=== PATIENT | female | born 1970 | race Caucasian/White ===

== ENCOUNTER 2017-01-21 17:01 | Inpatient (IN) | payer BC, OTHER ==
[~2017-01-21] VITALS: Ht 167.6 cm; Wt 47.6 kg
--- NOTE | 2017-01-21 17:21 | ED Fall/Injury ---
General Stated Complaint: FALL Source: patient Exam Limitations: no limitations History of Present Illness Time seen by provider: 17:19 Initial Comments To ER with reports of a fall while going down her stairs at home. She struck the right side of her head and landed on the right side of her body. No loss of consciousness, recalls all events. No nausea, no dizziness. She reports chronic neck pain. She also reports right shoulder pain. She also reports right hip pain. She takes gabapentin for her fibromyalgia. Occurred: just prior to arrival Severity: moderate Injuries/Pain Location: lower extremity Loss of Consciousness: no loss of consciousness Associated Symptoms (Fall): No Abdominal Pain, No Chest Pain, No Confusion, No Dizziness, Headache, Neck Pain (chronic and unchanged) Allergies and Home Medications Allergies Coded Allergies: No Known Allergies (Verified Allergy, Unknown, 03/29/06) Constitutional: see HPI Eyes: No Symptoms Reported Ears, Nose, Mouth, Throat: no symptoms reported Respiratory: no symptoms reported Cardiovascular: no symptoms reported Genitourinary: no symptoms reported Musculoskeletal: see HPI Skin: no symptoms reported Psychiatric/Neurological: No Symptoms Reported Past Udvhsol-Mszoxc-Ssfgpg Hx Patient Social History Recent Foreign Travel: No Contact w/Someone Who Travel: No Physical Exam Vital Signs Vital Sign - Last 12Hours 01/21/17 17:15 Temp 98.9 Pulse 76 Resp 16 B/P (MAP) 111/69 Pulse Ox 100 O2 Delivery Room Air Capillary Refill : General Appearance: WD/WN, no apparent distress, other (tearful and crying upon arrival) HEENT: PERRL/EOMI, normal ENT inspection, other (there is a small dime-sized abrasion to the right jain where she states she struck her head.) Neck: non-tender, full range of motion Cardiovascular: regular rate, rhythm, no murmur Respiratory: normal breath sounds, no respiratory distress, no accessory muscle use Gastrointestinal: normal bowel sounds, non tender, soft Extremities: normal range of motion, non-tender, other (there is no erythema ecchymosis or deformity to the hip or shoulder where she complains of pain. There is however swelling over the lateral right hip and tendrness to palpation) Neurologic/Psychiatric: alert, normal mood/affect, oriented x 3 Skin: normal color, warm/dry Comments distally she is neurovascularly intact Citlaly Coma Score Best Eye Response: (4) Open Spontaneously Best Verbal Response: (5) Oriented Best Motor Response: (6) Obeys Commands Matthews Total: 15 Progress/Results/Core Measures Results/Orders Lab Results Laboratory Tests Test 01/21/17 17:20 Range/Units White Blood Count 11.5 H 4.3-11.0 10^3/uL Red Blood Count 4.47 4.35-5.85 10^6/uL Hemoglobin 13.8 11.5-16.0 G/DL Hematocrit 41 35-52 % Mean Corpuscular Volume 91 80-99 FL Mean Corpuscular Hemoglobin 31 25-34 PG Mean Corpuscular Hemoglobin Concent 34 32-36 G/DL Red Cell Distribution Width 12.9 10.0-14.5 % Platelet Count 234 130-400 10^3/uL Mean Platelet Volume 10.7 H 7.4-10.4 FL Neutrophils (%) (Auto) 65 42-75 % Lymphocytes (%) (Auto) 26 12-44 % Monocytes (%) (Auto) 6 0-12 % Eosinophils (%) (Auto) 3 0-10 % Basophils (%) (Auto) 0 0-10 % Neutrophils # (Auto) 7.4 1.8-7.8 X 10^3 Lymphocytes # (Auto) 3.0 1.0-4.0 X 10^3 Monocytes # (Auto) 0.7 0.0-1.0 X 10^3 Eosinophils # (Auto) 0.3 0.0-0.3 10^3/uL Basophils # (Auto) 0.0 0.0-0.1 10^3/uL My Orders Orders - NADIYA MITCHELL APRN Ct Head/Cervical Spine Wo (01/21/17 17:18) Chest 1 View, Ap/Pa Only (01/21/17 17:18) Shoulder, Right, 3 Views (01/21/17 17:18) Cbc With Automated Diff (01/21/17 17:18) Saline Lock/Iv-Start (01/21/17 17:18) Hip, Right, 2 Views (01/21/17 17:18) Pelvis (01/21/17 17:18) Femur, Right, 2 Views (01/21/17 17:18) Fentanyl Injection (Sublimaze Injection (01/21/17 17:30) Fentanyl Injection (Sublimaze Injection (01/21/17 17:30) Ct Extremity Lower Right Wo (01/21/17 19:04) Morphine Injection (Morphine Injection (01/21/17 19:15) Partial Thromboplastin Time (01/21/17 19:49) Protime With Inr (01/21/17 19:49) Comprehensive Metabolic Panel (01/21/17 19:49) Medications Given in ED Current Medications Medications Dose Ordered Sig/Kyrie Route Start Time Stop Time Status Last Admin Dose Admin Fentanyl Citrate 75 mcg ONCE ONCE IVP 01/21/17 17:30 01/21/17 17:31 DC 01/21/17 17:30 75 MCG Morphine Sulfate 5 mg ONCE ONCE IVP 01/21/17 19:15 01/21/17 19:16 DC 01/21/17 19:10 5 MG Vital Signs/I&O Vital Sign - Last 12Hours 01/21/17 17:15 Temp 98.9 Pulse 76 Resp 16 B/P (MAP) 111/69 Pulse Ox 100 O2 Delivery Room Air Diagnostic Imaging Diagonstic Imaging: Xray, CT Comments NAME: HARISH KEMP [facility] REC#: [id number] PT STATUS: REG ER : 1970 PHYSICIAN: NADIYA MITCHELL EXERCISE RIDER ADMIT DATE: 01/21/17/ER Draft Date of Exam:01/21/17 CT HEAD/CERVICAL SPINE WO EXAMINATION: CT brain and CT cervical spine dated 01/21/2017. TECHNIQUE: Multiple contiguous axial images were obtained through the brain and cervical spine without the use of intravenous contrast. Sagittal and coronal reformations through the cervical spine were then performed. INDICATION: Fell down the stairs. Hit head. Pain in the shoulder and right hip. FINDINGS: BRAIN: No hemorrhage or infarct is seen with no mass, mass effect, or midline shift. There is no hydrocephalus. No acute osseous abnormality is seen. CERVICAL SPINE: The cervical spine demonstrates postoperative change with anterior fusion at C5-C6. The orthopedic hardware is unremarkable. Alignment of the spine is maintained. No acute fracture is appreciated. Lung apices demonstrate biapical scarring. Prevertebral soft tissues demonstrate no acute disease IMPRESSION: 1. Postoperative change in the neck with no acute abnormality appreciated within the cervical spine. 2. No acute process within the intracranial structures. Dictated on workstation # [id number] Dict: 01/21/17 1829 Trans: 01/21/17 184 [id number] Interpreted by: ELDON ALVAREZ MD Electronically signed by: NAME: HARISH KEMP [facility] REC#: [id number] PT STATUS: REG ER : 1970 PHYSICIAN: NADIYA MITCHELL APRN ADMIT DATE: 01/21/17/ER Draft Date of Exam:01/21/17 HIP, RIGHT, 2 VIEWS INDICATION: Fell down stairs, hip pain EXAMINATION: Right hip dated 01/21/17 FINDINGS: Two views of the hip demonstrate a suspected fracture through the femoral neck which was discussed with Dr. Mitchell. No dislocations are seen. Remaining visualized osseous structures intact. IMPRESSION: 1. Suspected not significantly displaced fracture of the right femoral neck. Dictated on workstation # [id number] Dict: 01/21/17 190 Trans: 01/21/17 191 [facility] [id number] Interpreted by: ELDON ALVAREZ MD Electronically signed by: NAME: HARISH KEMP [facility] REC#: [id number] PT STATUS: REG ER : 1970 PHYSICIAN: NADIYA MITCHELL APRN ADMIT DATE: 01/21/17/ER Draft Date of Exam:01/21/17 CT EXTREMITY LOWER RIGHT WO INDICATION: Fall, right hip pain. EXAMINATION: Right lower extremity CT, 01/21/2017. FINDINGS: There is a fracture of the right femoral neck. This lies at the junction of the femoral head and neck. The fracture site is slightly comminuted in appearance. Mild rotation of the femoral head in relation to the femoral neck is noted but there is no dislocation. No intratrochanteric extension is appreciated. The remaining visualized osseous structures appear to be intact. The visualized intrapelvic structures demonstrate no evidence for acute disease. IMPRESSION: Acute not significantly displaced right femoral neck fracture. Dictated on workstation # [id number] Dict: 01/21/17 193 Trans: 01/21/171954 [facility] 1625-1999 Interpreted by: ELDON ALVAREZ MD Electronically signed by: Departure Communication Time/Spoke to Admitting Phy: 19:[address] Hooker who is on-call for orthopedics. He would like to make the patient nothing by mouth after midnight and plan for hemiarthroplasty of the right hip tomorrow to follow his other cases. Consult medicine for clearance Time/Spoke to Consulting Physi: 19:43 Communication/Consulting Consult to Dr. Sanchez Impression Impression: Primary Impression: Closed right hip fracture Disposition: ADMITTED INPATIENT Condition: Stable Departure-Patient Inst. Decision time for Depature: 19:43 Referrals: CATA VERAS MD (PCP) Primary Care Physician Copy Copies To 1: CATA VERAS MD, PETER J APRN Jan 21, 2017 17:21
[2017-01-21] MEDS ORDERED: fentaNYL INJECTION 100 MCG/2 ML AMP IVP ONE ×2 (17:30)
[2017-01-21 17:43] LABS: BASOPHILS % (AUTO) 0 % (0-10); EOSINOPHILS # (AUTO) 0.3 10^3/uL (0.0-0.3); EOSINOPHILS % (AUTO) 3 % (0-10); LYMPHOCYTES % (AUTO) 26 % (12-44); MEAN CORPUSCULAR HEMOGLOBIN 31 PG (25-34); MEAN CORPUSCULAR HGB CONC 34 G/DL (32-36); MEAN CORPUSCULAR VOLUME 91 FL (80-99); MEAN PLATELET VOLUME 10.7 FL (7.4-10.4); MONOCYTES # (AUTO) 0.7 X 10^3 (0.0-1.0); MONOCYTES % (AUTO) 6 % (0-12); NEUTROPHILS # (AUTO) 7.4 X 10^3 (1.8-7.8); NEUTROPHILS % (AUTO) 65 % (42-75); PLATELET COUNT 234 10^3/uL (130-400); RED BLOOD COUNT 4.47 10^6/uL (4.35-5.85); RED CELL DISTRIBUTION WIDTH 12.9 % (10.0-14.5); WHITE BLOOD COUNT 11.5 10^3/uL (4.3-11.0)
--- NOTE | 2017-01-21 18:42 | Diagnostic Imaging Report ---
EXAMINATION: CT brain and CT cervical spine dated 01/21/2017. TECHNIQUE: Multiple contiguous axial images were obtained through the brain and cervical spine without the use of intravenous contrast. Sagittal and coronal reformations through the cervical spine were then performed. INDICATION: Fell down the stairs. Hit head. Pain in the shoulder and right hip. FINDINGS: BRAIN: No hemorrhage or infarct is seen with no mass, mass effect, or midline shift. There is no hydrocephalus. No acute osseous abnormality is seen. CERVICAL SPINE: The cervical spine demonstrates postoperative change with anterior fusion at C5-C6. The orthopedic hardware is unremarkable. Alignment of the spine is maintained. No acute fracture is appreciated. Lung apices demonstrate biapical scarring. Prevertebral soft tissues demonstrate no acute disease IMPRESSION: 1. Postoperative change in the neck with no acute abnormality appreciated within the cervical spine. 2. No acute process within the intracranial structures. Dictated by: Dictated on workstation # [id number]
--- NOTE | 2017-01-21 19:09 | Diagnostic Imaging Report ---
INDICATION: Fall EXAMINATION: Chest dated 01/21/2017 FINDINGS: The cardiomediastinal silhouette is unremarkable. The pulmonary vasculature is within normal limits. The lungs are hyperinflated. IMPRESSION: No evidence of an acute cardiopulmonary process. Dictated by: Dictated on workstation # [id number]
--- NOTE | 2017-01-21 19:11 | Diagnostic Imaging Report ---
INDICATION: Fell down stairs, hip pain EXAMINATION: Right hip dated 01/21/17 FINDINGS: Two views of the hip demonstrate a suspected fracture through the femoral neck which was discussed with Dr. Mitchell. No dislocations are seen. Remaining visualized osseous structures intact. IMPRESSION: 1. Suspected not significantly displaced fracture of the right femoral neck. Dictated by: Dictated on workstation # [id number]
--- NOTE | 2017-01-21 19:13 | Diagnostic Imaging Report ---
INDICATION: Fall EXAMINATION: Pelvis 01/21/17 FINDINGS: There is a fracture of the right femoral neck. Left hip is intact. IMPRESSION: 1. Right femoral neck fracture Dictated by: Dictated on workstation # [id number]
--- NOTE | 2017-01-21 19:13 | Diagnostic Imaging Report ---
INDICATION: Fall, right hip pain. EXAMINATION: Right shoulder, 01/21/2017. FINDINGS: Three views of the shoulder demonstrate no evidence for fracture or dislocation. Joint spaces are preserved and the right lung is clear. IMPRESSION: No acute osseous abnormality. Dictated by: Dictated on workstation # [id number]
[2017-01-21] MEDS ORDERED: morphine INJ 10 MG/ML 1ML (SYR OR VIAL) IVP ONE ×2 (19:15→20:30)
--- NOTE | 2017-01-21 19:15 | Diagnostic Imaging Report ---
INDICATION: Right hip pain EXAMINATION: Right hip dated 01/21/2017 FINDINGS: There is a suspected fracture through the right femoral neck with mild foreshortening at the fracture site but no dislocation appreciated. The more distal femur is intact. IMPRESSION: 1. Suspected right femoral neck fracture. This was discussed with Dr. Mitchell by Dr. Davison at the time of the dictation. CT may provide further characterization. Dictated by: Dictated on workstation # [id number]
--- NOTE | 2017-01-21 19:55 | Diagnostic Imaging Report ---
INDICATION: Fall, right hip pain. EXAMINATION: Right lower extremity CT, 01/21/2017. FINDINGS: There is a fracture of the right femoral neck. This lies at the junction of the femoral head and neck. The fracture site is slightly comminuted in appearance. Mild rotation of the femoral head in relation to the femoral neck is noted but there is no dislocation. No intratrochanteric extension is appreciated. The remaining visualized osseous structures appear to be intact. The visualized intrapelvic structures demonstrate no evidence for acute disease. IMPRESSION: Acute not significantly displaced right femoral neck fracture. Dictated by: Dictated on workstation # [id number]
[2017-01-21 20:37] LABS: INR 1.1 (0.8-1.4); PROTHROMBIN TIME PATIENT 13.6 SEC (12.2-14.7)
[2017-01-21 20:45] LABS: ALANINE AMINOTRANSFERASE 22 U/L (0-55); ALBUMIN 4.3 GM/DL (3.2-4.5); ANION GAP 12 MMOL/L (5-14); ASPARTATE AMINO TRANSFERASE 27 U/L (5-34); BILIRUBIN,TOTAL 0.6 MG/DL (0.1-1.0); BLOOD UREA NITROGEN 7 MG/DL (7-18); BUN/CREATININE RATIO 8 (0-20); CARBON DIOXIDE 23 MMOL/L (21-32); CHLORIDE 103 MMOL/L (98-107); GFR ESTIMATED > 60; GLUCOSE 154 MG/DL (70-105); HEMOLYSIS 13 (-100-29); ICTERUS 0.6 (-100-1.9); LIPEMIA 2 (-100-49); POTASSIUM 3.5 MMOL/L (3.6-5.0); SODIUM 138 MMOL/L (135-145); TOTAL PROTEIN 6.6 GM/DL (6.4-8.2)
[2017-01-21 20:53] LABS: BILIRUBIN,URINE NEGATIVE (NEGATIVE); KETONES,URINE 2+ (NEGATIVE); LEUKOCYTE ESTERASE ,URINE 1+ (NEGATIVE); NITRITE,URINE NEGATIVE (NEGATIVE); PH,URINE 7 (5-9); PROTEIN,URINE NEGATIVE (NEGATIVE); UROBILINOGEN,URINE NORMAL (NORMAL)
[2017-01-21 21:05] LABS: RENAL EPITHELIAL CELLS,URINE RARE /HPF; WBC,URINE 0-2 /HPF
[2017-01-21] MEDS ORDERED: NS IV 1000 ML 1,000 ML ONE (21:17)
[2017-01-21] MEDS ORDERED: morphine PCA 30 MG/30 ML VIAL IV ONE (21:17)
[2017-01-21 21:35] VITALS: BP 105/66
[2017-01-21] MEDS ORDERED: NS IV 1000 ML 1,000 ML IV SCH (22:25)
[2017-01-21] MEDS ORDERED: diphenhydrAMINE 50 MG/ML INJ (BENADRYL) IV PRN (22:30)
[2017-01-21] MEDS ORDERED: ONDANSETRON 4 MG/2 ML (SDV) Z0FRAN IV PRN (22:30)
[2017-01-21] MEDS ORDERED: NALOXONE 0.4 MG/ML 1 ML (NARCAN) VIAL IV PRN (22:30)
[2017-01-21] MEDS ORDERED: METOCLOPRAMIDE INJ 10 MG/2 ML (REGLAN) IV PRN (22:30)
[2017-01-22] VITALS (7 sets, daily range): BP systolic 86–104; BP diastolic 51–63
[2017-01-22] MEDS ORDERED: TRAZ100T92 PO (00:09)
[2017-01-22] MEDS ORDERED: GABA300C PO (00:09)
[2017-01-22] MEDS ORDERED: LEVO112T2 PO (00:09)
[2017-01-22] MEDS: NS IV 1000 ML 1,000 ML IV SCH ×3 (05:44→17:47)
[2017-01-22] MEDS: morphine PCA 30 MG/30 ML VIAL IV PRN (07:08)
--- NOTE | 2017-01-22 07:52 | History & Physicial ---
History of Present Illness History of Present Illness Reason for visit/HPI 46 yr old FM fell yesterday going down flight of stairs. she fell from height of two feet onto ground directly onto her R hip. She has R shoulder and R hip pain and is unable to WB. She has a minimally displaced R femoral neck fracture. She is agreeable to operative stabilization and understands the risk of future hemiarthroplasty. She is on no blood thinners. Date of Admission Jan 21, 2017 at 19:47 Time Seen by Provider: 07:50 I consulted on this patient on 01/22/17 07:49 Attending Physician Maury Hooker DO Admitting Physician Minerva West MD Consult Allergies and Home Medications Allergies Coded Allergies: NKANo Known Allergies (Verified Allergy, Unknown, 03/29/06) Home Medications Gabapentin 300 Mg Capsule, 300 MG PO BID, (Reported) Levothyroxine Sodium 112 Mcg Tablet, 112 MCG PO DAILY, (Reported) Trazodone HCl 100 Mg Tablet, 100 MG PO HS, (Reported) Past Vdgpelu-Wpodse-Wxrhaj Hx Patient Social History Alcohol Use: Denies Use Recreational Drug Use: No Smoking Status: Current Everyday Smoker Type Used: Cigarettes 2nd Hand Smoke Exposure: No Physical Abuse Screen: No Sexual Abuse: No Recent Foreign Travel: No Contact w/other who traveled: No Recent Hopitalizations: No Recent Infectious Disease Expo: No Seasonal Allergies Seasonal Allergies: No Surgeries Surgeries: Abdominal, Adenoidectomy, Gallbladder, Hysterectomy, Orthopedic, Tonsillectomy Gastrointestinal Gastrointestinal Disorders: Hiatal Hernia Musculoskeletal Musculoskeletal Disorders: Degenerate Disk Disease, Fibromyalgia Endocrine Endocrine Disorders: Hypothyroidsim Psychosocial Behavioral Health Disorders: Anxiety, Depression Blood Transfusions Adverse Reaction to a Blood Tr: No Constitutional: no symptoms reported Physical Exam Vital Signs Vital Sign - Last 12Hours 01/21/17 17:15 Temp 98.9 Pulse 76 Resp 16 B/P (MAP) 111/69 Pulse Ox 100 O2 Delivery Room Air Capillary Refill : Less Than 3 SecondsLess Than 3 Seconds General Appearance: No Apparent Distress Extremity: Other (Pain with RLE log roll, 5/5 dorsiflexion, SILT all dermatomes , 2/4 DP, PT) Assessment/Plan Assessment and Plan ASSESSMENT: R femoral neck fracture PLAN: R hip CRPP postoperative DVT prophylaxis medicine consulted for clearance Problems: Clinical Quality Measures DVT/VTE Risk/Contraindication: Risk Factor Score Per Nursin RFS Level Per Nursing on Admit: 4+=Very High MAURY HOOKER DO Jan 22, 2017 07:52
[2017-01-22] MEDS ORDERED: GABA-488 PO (08:52)
[2017-01-22] MEDS ORDERED: FLUO40CA PO (08:52)
[2017-01-22] MEDS ORDERED: CYCL10TA9 PO (08:52)
[2017-01-22] MEDS ORDERED: FAMOTIDINE 20MG/2ML IV (PEPCID) IV NR (09:43)
[2017-01-22] MEDS: SENNA W/DOCUSATE (SENOKOT S) TABLET PO SCH (09:45)
[2017-01-22] MEDS ORDERED: BUPIVACAINE 0.5% 30 ML (SENSORCAINE) VIAL ONE (10:54)
[2017-01-22] MEDS: LACTATED RINGERS 1,000 ML IV PRN ×2 (11:15→12:43)
[2017-01-22] MEDS ORDERED: ceFAZolin 1,000 MG (ANCEF) VIAL ONE (11:15)
[2017-01-22] MEDS ORDERED: fentaNYL INJECTION 100 MCG/2 ML AMP ONE (11:32)
[2017-01-22] MEDS ORDERED: MIDAZOLAM 10 MG/2 ML (VERSED) VIAL ONE (11:32)
--- NOTE | 2017-01-22 11:32 | Occ Therapy Progress Note ---
Therapy Progress Note Order received for OT eval and treat. Chart review completed and spoke with RN regarding plan of care. Pt admitted with right hip fracture and plan is for pt to go to OR today for surgical intervention. Will hold therapy at this time and follow up on 01/23/17 to attempt OT evaluation. THOMAS ODRAN OT Jan 22, 2017 11:32
[2017-01-22] MEDS ORDERED: morphine PF (DURAMORPH) 10 MG/10 ML AMP ONE (11:36)
[2017-01-22] MEDS ORDERED: proPOfol 200 MG/20 ML (DIPRIVAN) VIAL IV ONE (11:36)
[2017-01-22] MEDS ORDERED: LACTATED RINGERS 2,000 ML IV ONE (12:32)
[2017-01-22] MEDS ORDERED: morphine INJ 10 MG/ML 1ML (SYR OR VIAL) ONE (13:00)
--- NOTE | 2017-01-22 13:48 | Diagnostic Imaging Report ---
INDICATION: Right hip fracture IMPRESSION: 54.5 seconds of fluoroscopy was used by Dr. Hooker during right hip pinning. 2 digital images show 3 screws positioned within the femoral neck. Dictated by: Dictated on workstation # [id number]
[2017-01-22] MEDS: oxyCODONE/APAP 5/325MG (PERCOCET 5) TABLET PO PRN (14:49)
[2017-01-23 00:15] VITALS: BP 110/65
[2017-01-23] MEDS: NS IV 1000 ML 1,000 ML IV SCH ×2 (01:41→09:44)
--- NOTE | 2017-01-23 03:17 | OPERATIVE REPORT ---
DATE OF SERVICE: 01/22/2017 SURGEON: Maury Hooker DO TELLER HEAD: RITIKA Delgado This is a medically necessary procedure. Assistance is necessary for retraction of vital neurovascular structures. Without an health assistant, procedure would not be possible. PREOPERATIVE DIAGNOSIS: Minimally displaced right femoral neck fracture. POSTOPERATIVE DIAGNOSIS: Minimally displaced right femoral neck fracture. PROCEDURE PERFORMED: 1. Closed reduction. 2. Percutaneous pinning of right femoral neck. COMPLICATIONS: None. SPECIMENS: None. ANESTHESIA: General endotracheal tube anesthesia with local anesthetic. DRAIN PLACED: None. SPECIMEN SENT: None. HISTORY OF PRESENT ILLNESS: The patient is a very pleasant 46-year-old female who yesterday slipped going down the stairs. She fell down 2 stairs directly on her right hip. She experienced right hip pain and inability to bear weight. She presented to the ER where fracture of her femoral neck on the right side was identified. Orthopedics was consulted. She was made nonweightbearing and made n.p.o. for OR today. Due to the patient's young age and relative good alignment of the fracture, I did opt to perform a percutaneous pinning to preserve her [place] bone. She understands that the risk of this is fracture displacement and subsequent need for hemiarthroplasty and another surgery. OPERATION: The patient was identified by name on wrist band in the preoperative holding area. Her operative site was signed. Consent was signed. SCDs were placed. No neuro monitoring was used. Antibiotics were started. She was taken to the operating room theater, placed under general endotracheal tube anesthesia and placed in the supine position on the fracture table. Her unaffected left lower extremity was abducted and externally rotated. Her affected right lower extremity was brought out to 180 degrees and internally rotated approximately 15 degrees and adducted. She was then prepped and draped in the usual sterile fashion. Formal timeout was conducted. I then made a small 1.5-inch incision over her right greater trochanter. I used a knife to cut her fascia and I gained access to the lateral cortex of her proximal femur. I then placed under power a wire to parallel the inferior aspect of the femoral neck and I brought that wire just shy of subchondral bone. I reviewed this process superiorly for an anterosuperior and anteroposterior pin. Once I verified the positioning of these on AP and lateral x-ray, I measured the length of my intended screws. I broke the lateral cortices and I obtained those screws and placed one of the screws in breach lateral cortex, therefore, I removed it, placed a washer in order and it allowed to lag the 2 fracture fragments together. Once finished, I removed the guidewires and obtained an AP and lateral x-ray and screws were in good position and the fracture alignment was acceptable. At this point, I irrigated the wound and I closed it in my usual layered fashion utilizing 0 Vicryl followed by 2-0 Vicryl, followed by pa for skin. I applied dressing and took the patient in a supine position to PACU where she awoke without incident. She tolerated this procedure very well. Plan at this time is to keep the patient nonweightbearing on her affected right lower extremity. We will have her on Lovenox and also for DVT prophylaxis, we will keep her on aspirin. We will have her on physical therapy for crutch training. Job ID: [id number] DocumentID: [id number] Dictated Date: 01/22/2017 13:01:50 Sheet Metal Apprentice Date: 01/23/2017 00:03:30 Dictated By: MAURY HOOKER DO
[2017-01-23 04:10] VITALS: BP 112/72
[2017-01-23 05:49] LABS: MEAN PLATELET VOLUME 11.2 FL (7.4-10.4); RED BLOOD COUNT 3.76 10^6/uL (4.35-5.85); RED CELL DISTRIBUTION WIDTH 13.2 % (10.0-14.5); WHITE BLOOD COUNT 8.5 10^3/uL (4.3-11.0)
[2017-01-23 06:12] LABS: ALANINE AMINOTRANSFERASE 64 U/L (0-55); ANION GAP 9 MMOL/L (5-14); ASPARTATE AMINO TRANSFERASE 52 U/L (5-34); BILIRUBIN,TOTAL 0.6 MG/DL (0.1-1.0); BLOOD UREA NITROGEN 5 MG/DL (7-18); BUN/CREATININE RATIO 7 (0-20); CALCIUM 8.3 MG/DL (8.5-10.1); CARBON DIOXIDE 22 MMOL/L (21-32); CHLORIDE 110 MMOL/L (98-107); CREATININE SERUM 0.74 MG/DL (0.60-1.30); GFR ESTIMATED > 60; GLUCOSE 73 MG/DL (70-105); HEMOLYSIS 7 (-100-29); ICTERUS 0.5 (-100-1.9); LIPEMIA -2 (-100-49); POTASSIUM 3.9 MMOL/L (3.6-5.0); SODIUM 141 MMOL/L (135-145); TOTAL PROTEIN 5.1 GM/DL (6.4-8.2)
[2017-01-23] MEDS: oxyCODONE/APAP 5/325MG (PERCOCET 5) TABLET PO PRN ×4 (07:51→20:28)
[2017-01-23] MEDS: SENNA W/DOCUSATE (SENOKOT S) TABLET PO SCH (07:52)
[2017-01-23] MEDS: ENOXAPARIN 40 MG/0.4 ML (LOVENOX) SYR SC SCH (07:52)
[2017-01-23] MEDS: morphine PCA 30 MG/30 ML VIAL IV PRN (08:16)
[2017-01-23 08:56] VITALS: BP 112/72
--- NOTE | 2017-01-23 09:33 | Physical Therapy Evaluation ---
PT Evaluation-General Medical Diagnosis Admission Date Jan 21, 2017 at 19:47 Medical Diagnosis: right femoral neck fracture Onset Date: Jan 21, 2017 Therapy Diagnosis Therapy Diagnosis: debility Height/Weight Height (Feet): 5 Height (Inches): 6.00 Weight (Pounds): 105 Weight (Ounces): 0.0 Precautions Precautions/Isolations: Fall Prevention, Standard Precautions Weight Bear Status Weight Bearing Restriction: Non Weight Bearing Location Restriction: R LE Referral Physician: Morro Reason for Referral: Evaluation/Treatment Medical History Pertinent Medical History: DM Additional Medical History fibromyalgia Current History s/p fall going down steps, hit head and right hip s/p pinning right hip Reviewed History: Yes Social History Home: Single Level Current Living Status: Spouse Entry Into Home: Stairs Without Railing PT Steps Into Home: 2 Prior/Core FIM Prior Level of Function Functional [place] Measure 0=Not Assessed/NA 4=Minimal Assistance 1=Total Assistance 5=Supervision or Setup 2=Maximal Assistance 6=Modified [place] 3=Moderate Assistance 7=Complete [place] Bed Mobility: 7 Transfers (B,C,W/C) (FIM): 7 Gait: 7 Locomotion: 7 PT Evaluation-Current Subjective Patient rates right hip pain 10/10 with oral pain meds and DRAPERY OPERATOR use. Pain Numeric Pain Scale: 10-Worst Possible Pain Location: Right Location Body Site: Hip Pain Description: Acute Objective Patient Orientation: Normal For Age Problem Solving: Good Attachments: IV ROM/Strength ROM Lower Extremities left LE WFL right LE limited due to pain Strenght Lower Extremities left LE 4/5 grossly all planes right LE NT Integumentary/Posture Integumentary refer to nursing notes Bowel Incontinence: No Bladder Incontinence: No Posture WNL Neuromuscular (Tone, Coordination, Reflexes) grossly intact Sensory Vision: Wears Glasses Hearing: Functional Sensation Right Lower Extremit: Intact Sensation Left Lower Extremity: Intact Transfers Functional [place] Measure 0=Not Assessed/NA 4=Minimal Assistance 1=Total Assistance 5=Supervision or Setup 2=Maximal Assistance 6=Modified [place] 3=Moderate Assistance 7=Complete [place] Transfers (B, C, W/C) (FIM): 6 Scootin Rollin Supine to/from Sit: 6 Sit to/from Stand: 6 Gait Mode of Locomotion: Walk Anticipated Mode of Locomotion: Walk Gait (FIM): 1 Distance (FIM): 1=up to 49 ft Distance: 10' Gait Level of Assist: 6 Gait Assistive Device: FWW Comments/Gait Description NWB right LE Balance Sitting Static: Normal Sitting Dynamic: Normal Standing Static: Normal Standing Dynamic: Normal Assessment/Needs 46 y.o. female, will benefit from short term skilled PT to address functional strength and mobility to ensure safe return to home with spouse at maximum LOF. Rehab Potential: Good PT Short Term Goals Short Term Goals Time Frame: Jan 26, 2017 Transfers (B,C,W/C) (FIM): 6 Gait (FIM): 1 Distance (FIM): 1=up to 49 ft Gait Level of Assist: 6 Gait Assistive Device: FWW PT Plan Problem List Problem List: Activity Tolerance, Functional Strength Treatment/Plan Treatment Plan: Continue Plan of Care Treatment Plan: Education, Functional Activity Cherri, Functional Strength, Gait , Therapeutic Exercise Treatment Duration: Jan 26, 2017 # of days/week 5 Visits Per Week: 5 Pt/Family Agrees w/Plan: Yes Safety Risks/Education Patient Education: Gait Training, Transfer Techniques Teaching Recipient: Patient, Significant Other Teaching Methods: Demonstration, Discussion Response to Teaching: Verbalize Understanding, Return Demonstration Discharge Recommendations Therapy D/C Recommendations: Home w/ Family Support Equpiment Recommendations-D/C: Front Wheeled Walker Time/GCodes Time In: 805 Time Out: 820 Total Billed Treatment Time: 15 Total Billed Treatment 1 visit EVLowC 15 min G Codes Necessary: EUGENE Davison PT Jan 23, 2017 09:33
--- NOTE | 2017-01-23 09:50 | Occupational Therapy Eval ---
OT Evaluation-General/PLF Medical Diagnosis Admission Date Jan 21, 2017 at 19:47 Medical Diagnosis: right femoral neck fracture Onset Date: Jan 21, 2017 Therapy Diagnosis Therapy Diagnosis: Decreased ADL skills Height/Weight Height (Feet): 5 Height (Inches): 6.00 Weight (Pounds): 105 Weight (Ounces): 0.0 Precautions Precautions/Isolations: Fall Prevention, Standard Precautions Safety Interventions: None Weight Bear Status Weight Bearing Restriction: Non Weight Bearing Location Restriction: R LE Pt. has pinning in right hip. Referral Physician: Mor[place] Referral Reason: Activity Tolerance, Self Care, Evaluation/Treatment, Strengthening/ROM Medical History Pertinent Medical History: DM Additional Medical History abdominal surgery, DDD, anxiety, depression Current History Pt. fell in garage. Reviewed History: Yes Social History Home: Single Level Current Living Status: Spouse Entry Into Home: Stairs With Railing, Stairs Without Railing Steps Into Home: 2 ADL-Prior Level of Function ADL PLOF Comments Pt. 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 Did not state what she did. Was independent with all other self care activities. Spouse works as well. DME/Equipment: Bath Chair, Bedside Commode, Tub/Shower DME/Equipment Comments Pt. and spouse state that she has access to the pieces of adaptive equipment. Drive Self: Yes OT Current Status Subjective Pt. states that her pain is well controlled at this moment. Pt. does note that her right UE is sore. Does not state a pain level. Appearance Pt. up in chair. States, "I'm groggy right now." Spouse in room. Mental Status/Objective Patient Orientation: Person, Place Attachments: IV Current Glasses/Contacts: Yes Upper Extremity ROM Left- WFL Right- Pt. able to flex shoulder to right over 90 degrees. Indicates pain in area of bicep belly. No pain noted in shoulder girdle. No pain noted in elbow region. Pt. is able to externally and internally rotate shoulder, but states that she has soreness in same area with doing this. Upper Extremity Coordination intact Upper Extremity Strength NT due to pain in right UE. Pt. states that she fell on right side when she fell in her garage. States that she had x-rays, that did not show dislocation or fx. States that she is to have an MRI, but is afraid due to hip pain and hard surface in which she has to lay. No bruising noted except in thenar eminence of right palm. No swelling noted. ADL-Treatment Functional [place] Measure 0=Not Assessed/NA 4=Minimal Assistance 1=Total Assistance 5=Supervision or Setup 2=Maximal Assistance 6=Modified [place] 3=Moderate Assistance 7=Complete IndependenceIRFPAI Quality Coding Scale 6 Independent with activity with or without an assistive device 5 Patient requires set up or clean up by helper. Patient completes activity by themselves 4 Supervision or touching assist (CGA). [place] provide cues , steadying assist 3 The helper provides less than half the effort to complete the activity 2 The helper provides more than half the effort to complete the activity 1 Dependent. The helper does all the effort to complete an activity 7 Patient refused to complete or attempt activity 9 The patient did not perform the activity before the current illness or injury 88 Not attempted due to Medical conditions or safety concerns Toileting (FIM): 5 (Pt. states that she has already been to bathroom this morning with spouse assist, and was able to toilet on her own.) Pt. declines out of chair activity. However, is able to reach feet from chair surface. Pt. and spouse are fully educated regarding adaptive equipment, and possible OT needs. However, pt. states that she does not feel that she will have a problem. States that between her spouse, sister, and daughter, that she will have assist and will not have issues with mobility or ADLs. Pt. and spouse are educated on tub/transfer bench as well, as they have access to a shower chair, walker, and BSC. Pt. is fully aware of NWB precautions. Both pt. and spouse verbalize understanding. This OT offers to assist pt. with shower task. Pt. declines at this time and states, 'I'm too groggy." Pt. states that her spouse can assist later if she wants one. Pt. does not feel that she has OT needs at this time. Pt. and spouse educated to have OT come back, if they have questions when she does start doing these tasks. Both verbalize understanding. Education OT Patient Education: Correct positioning, Modified ADL techniques, Purpose of tx/functional activities, Reviewed precautions, Rehab process Teaching Recipient: Patient, Family Teaching Methods: Demonstration, Discussion Response to Teaching: Verbalize Understanding, Return Demonstration OT Short Term Goals Short Term Goals Transfers (B,C,W/C) (FIM): 6 1=Demonstrate adherence to instructed precautions during ADL tasks. 2=Patient will verbalize/demonstrate understanding of assistive devices/ modifications for ADL. 3=Patient will improve strength/tolerance for activity to enable patient to perform ADL's. OT Wet Process Head Miller Goals Wet Process Head Miller Goals Time Frame: Jan 23, 2017 Pt. and spouse will verbalize all needs for home, and OT goals. Both have done so, and do not feel that OT is warranted at this time. Would be happy to come back and talk with this pt. and family if needed, or if they change their minds later. Additional Goals: 2-Verbalize Understanding 1=Demonstrate adherence to instructed precautions during ADL tasks. 2=Patient will verbalize/demonstrate understanding of assistive devices/ modifications for ADL. 3=Patient will improve strength/tolerance for activity to enable patient to perform ADL's. OT Education/Plan Problem List/Assessment Assessment: Decreased Activ Tolerance, Impaired I ADL's, Impaired Self-Care Skills Discharge Recommendations Plan/Recommendations: Discontinue OT Therapy D/C Recommendations: Home w/ Family Support Equpiment Recommendations-D/C: Extended Bath Bench Comment Pt. may possibly need hip kit. However, she will determine this at later time. Target Placement Pt. will discharge home with spouse and family members. Does not feel OT is warranted at this time. Treatment Plan/Plan of Care Treatment,Training & Education: Yes Patient would benefit from OT for education, treatment and training to promote independence in ADL's, mobility, safety and/or upper extremity function for ADL' s. Treatment Duration: Jan 23, 2017 Visits Per Week: 1 visit Discharge OT Rehab Potential: Good Time/GCodes Start Time: 09:10 Stop Time: 09:25 Total Time Billed (hr/min): 15 Billed Treatment Time 1, EVL Discontinue OT OT not warranted at this time. JANNETTE TORRES OT Jan 23, 2017 09:50
--- NOTE | 2017-01-23 10:27 | Progress Note (SOAP) ---
Subjective Date Seen by Provider: Jan 23, 2017 Time Seen by Provider: 07:10 Subjective/Events-last exam POD #1 s/p right hip percutaneous pinning. C/o mild to moderate hip pain. Denies new symptoms today Review of Systems Pulmonary: No Cough Cardiovascular: No: Palpitations Gastrointestinal: No: Abdominal Pain, Nausea, Vomiting Musculoskeletal: leg pain Neurological: No: Incoordination, Weakness Objective Exam Vital Signs Date Time Temp Pulse Resp B/P (MAP) Pulse Ox O2 Delivery O2 Flow Rate FiO2 01/23/17 08:56 98.6 79 22 112/72 99 Nasal Cannula 1.00 01/23/17 08:16 18 01/23/17 06:19 18 01/23/17 04:10 98.7 68 20 112/72 97 Room Air 01/23/17 00:15 98.3 59 20 110/65 98 Room Air 01/22/17 21:38 99.6 62 19 104/55 98 Room Air 01/22/17 21:00 Nasal Cannula 1.00 01/22/17 21:00 99.6 62 19 104/55 98 Room Air 01/22/17 18:31 18 01/22/17 16:35 99.6 58 18 86/54 99 Room Air 01/22/17 15:29 99.8 01/22/17 15:13 Room Air 01/22/17 14:49 100.5 01/22/17 14:30 100.2 72 14 92/54 97 Nasal Cannula 1.00 I & O 01/23/17 07:00 Intake Total 2900 ml Output Total 1350 ml Balance 1550 ml Capillary Refill : Less Than 3 SecondsLess Than 3 Seconds General Appearance: No Apparent Distress, Thin Neck: Normal Inspection Respiratory: No Accessory Muscle Use, No Respiratory Distress Cardiovascular: No JVD, Normal Peripheral Pulses Peripheral Pulses: 2+ Dorsalis Pedis (R), 2+ Left Dors-Pedis (L) Extremity: Non Tender, No Calf Tenderness, No Pedal Edema Neurologic/Psychiatric: Alert, Oriented x3, No Motor/Sensory Deficits, Normal Mood/Affect Skin: Normal Color Results Lab Laboratory Tests 01/23/17 04:36: White Blood Count 8.5, Red Blood Count 3.76L, Hemoglobin 11.3L, Hematocrit 35, Mean Corpuscular Volume 94, Mean Corpuscular Hemoglobin 30, Mean Corpuscular Hemoglobin Concent 32, Red Cell Distribution Width 13.2, Platelet Count 146, Mean Platelet Volume 11.2H, Sodium Level 141, Potassium Level 3.9, Chloride Level 110H, Carbon Dioxide Level 22, Anion Gap 9, Blood Urea Nitrogen 5L, Creatinine 0.74, Estimat Glomerular Filtration Rate > 60, BUN/Creatinine Ratio 7 , Glucose Level 73, Calcium Level 8.3L, Total Bilirubin 0.6, Aspartate Amino Transf (AST/SGOT) 52H, Alanine Aminotransferase (ALT/SGPT) 64H, Alkaline Phosphatase 89, Total Protein 5.1L, Albumin 3.0L Assessment/Plan Assessment/Plan Assess & Plan/Chief Complaint Assessment; right hip fx, s/p perc pinning Plan: non weight bearing to RLE PT/OT eval crutch use lovenox, calf scd IS Clinical Quality Measures DVT/VTE Risk/Contraindication: Risk Factor Score Per Nursin RFS Level Per Nursing on Admit: 4+=Very High PAGE WHEELER Jan 23, 2017 10:27
[2017-01-23 12:01] VITALS: BP 102/65
--- NOTE | 2017-01-23 13:54 | Anesthesia-Regional Post-Op ---
Regional Patient Condition Mental Status: Alert, Oriented x3 Circulation: Same as Pre-Op Headache: Absent Sensation: Full Recovery Motor Block: Absent Post Op Complications Complications None Follow Up Care/Instructions Patient Instructions None needed. Anesthesia/Patient Condition Patient is doing well, no complaints, stable vital signs, no apparent adverse anesthesia problems. No complications reported per nursing. VENKAT QUIROGA CRNA Jan 23, 2017 13:54
--- NOTE | 2017-01-23 14:32 | Physical Therapy Progress Note ---
Therapy Progress Note Patient is up in room and to commode ad rip with FWW and NWB right LE. Patient states she feels comfortable with all gross motor skills and has established equipment at home. PT to dismiss from services at this time. RN notified. 1 visit EUGENE CRUZ PT Jan 23, 2017 14:32
[2017-01-23] MEDS ORDERED: CYCLOBENZAPRINE 10 MG (FLEXERIL) TAB PO PRN (15:15)
[2017-01-23] MEDS ORDERED: morphine INJ 4 MG/ML 1 ML (VIAL/SYRINGE) ONE (16:54)
[2017-01-23 16:59] VITALS: BP 108/60
--- NOTE | 2017-01-23 17:16 | Diagnostic Imaging Report ---
PROCEDURE: MRI right joint upper extremity without contrast. TECHNIQUE: Multiplanar, multisequence non contrast-enhanced MRI of the right upper extremity was accomplished. INDICATION: Fall. FINDINGS: There is a bone marrow contusion involving the greater tuberosity with no macroscopic fracture line. There is periosteal edema and the possible hemorrhage. Similarly, there is a small amount of fluid also seen in the subacromial-subdeltoid bursa. The acromioclavicular joint appears normal. The glenohumeral joint is also normal. There is a small glenohumeral joint effusion. The supraspinatus and infraspinatus tendons demonstrate minimal increased signal distally suggestive of a low-grade partial tear. No full-thickness or retracted tear. The subscapularis tendon appears unremarkable. The long head biceps tendon is in its groove. The glenoid labrum appears grossly unremarkable on this exam without articular contrast. The muscle bulk and signal is normal. IMPRESSION: 1. Bone marrow contusion along the greater tuberosity. 2. Low-grade partial tear in the substance of the distal supraspinatus and infraspinatus tendons. Dictated by: Dictated on workstation # [id number]
[2017-01-23 20:12] VITALS: BP 97/54
[2017-01-23] MEDS: GABAPENTIN 300 MG (NEURONTIN) CAP PO SCH (20:17)
[2017-01-23] MEDS ORDERED: traZODone 100 MG (DESYREL) TAB PO SCH (21:00)
[2017-01-23] MEDS ORDERED: FLUoxetine HCL 20 MG (PROzac) CAP PO SCH (21:00)
[2017-01-23] MEDS ORDERED: NON-FORMULARY MEDICATION 1 EA EA (Fluoxetine HCl 40 MG) PO SCH (21:00)
[2017-01-24 00:10] VITALS: BP 108/59
[2017-01-24] MEDS: oxyCODONE/APAP 5/325MG (PERCOCET 5) TABLET PO PRN ×3 (00:22→08:25)
[2017-01-24 06:18] LABS: MEAN PLATELET VOLUME 10.6 FL (7.4-10.4); RED BLOOD COUNT 3.91 10^6/uL (4.35-5.85); RED CELL DISTRIBUTION WIDTH 13.1 % (10.0-14.5)
[2017-01-24] MEDS ORDERED: LEVOTHYROXINE 112 MCG (LEVOTHROID) TAB PO SCH (06:30)
[2017-01-24] MEDS ORDERED: OXYC-471 PO (06:31)
[2017-01-24] MEDS ORDERED: ASPI-9 PO (06:31)
--- NOTE | 2017-01-24 06:40 | Discharge Summary ---
Diagnosis/Chief Complaint Date of Admission Jan 21, 2017 at 19:47 Date of Discharge Discharge Date: Jan 24, 2017 Discharge Time: 06:36 Admission Diagnosis Admission Diagnosis ASSESSMENT: R femoral neck fracture Discharge Diagnosis Right femoral neck fracture S/P right hip percutaneous pinning Right shoulder contusion with small tear Reason Hospital Visit Fall Resulting in right hip fracture Discharge Summary Hospital Course Hospital Course Patient was fell and was brought to [facility] ER. She was found to have a right femoral neck fracture. Dr. Hooker was consulted, and performed a right hip percutaneous pinning. Patient tolerated the procedure well. She had good pain control with oral analgesics. She was able to ambulate with the aid of a walker. There were no significant events during her hospital course. Patient was discharged home on POD #2. Labs Laboratory Tests 01/21/17 17:20: White Blood Count 11.5H, Mean Platelet Volume 10.7H, Potassium Level 3.5L, Glucose Level 154H 01/21/17 20:45: Urine Specific [place] 1.005L, Urine Ketones 2+H, Urine Leukocyte Esterase 1+H, Urine Bacteria FEWH, Urine Mucus SMALLH 01/23/17 04:36: Mean Platelet Volume 11.2H, Red Blood Count 3.76L, Hemoglobin 11.3L, Chloride Level 110H, Blood Urea Nitrogen 5L, Calcium Level 8.3L, Aspartate Amino Transf ( AST/SGOT) 52H, Alanine Aminotransferase (ALT/SGPT) 64H, Total Protein 5.1L, Albumin 3.0L 01/24/17 06:08: Mean Platelet Volume 10.6H, Red Blood Count 3.91L Procedures Right hip percutaneous pinning Discharge Physical Examination Allergies: Coded Allergies: NKANo Known Allergies (Verified Allergy, Unknown, 03/29/06) Vitals & I&Os Vital Signs Date Time Temp Pulse Resp B/P (MAP) Pulse Ox O2 Delivery O2 Flow Rate FiO2 01/24/17 00:10 98.6 59 18 108/59 93 Room Air 01/23/17 08:56 1.00 Discharge Home Medications Reviewed and agree with Discharge Medication list on patient's Discharge Instruction sheet Instructions to Patient/Family Please see electonic discharge instructions given to patient. Clinical Quality Measures DVT/VTE Risk/Contraindication: Risk Factor Score Per Nursin RFS Level Per Nursing on Admit: 4+=Very High SUNSHINE MANE Jan 24, 2017 06:40
[2017-01-24 07:39] VITALS: BP 106/70
[2017-01-24] MEDS: ENOXAPARIN 40 MG/0.4 ML (LOVENOX) SYR SC SCH (08:25)
[2017-01-24] MEDS: SENNA W/DOCUSATE (SENOKOT S) TABLET PO SCH (08:25)
[2017-01-24] MEDS: GABAPENTIN 300 MG (NEURONTIN) CAP PO SCH (08:25)
--- NOTE | 2017-01-24 09:55 | Occ Therapy Progress Note ---
Therapy Progress Note Pt. discharged from OT services yesterday, as neither pt. nor spouse had any questions or concerns regarding ADL management. However, today nursing requested OT to come back, as pt. was having some difficulty with LE dressing. OT happy to do this. Brought in adaptive equipment. Educated both pt. and spouse on all equipment. Pt. able to transfer to side of bed independently. Pt. able to practice doffing/donning socks with dressing stick and sock aide. Pt. issued long handled sponge and educated about where to get hip kit. Pt. also educated about tub transfer bench, and this was pulled up on therapist's phone and picture shown to spouse. Also educated them regarding other strategies for getting into/out of tub. Pt. states that she does not know what shoes she will be wearing at home. Provided information regarding elastic ties for tennis shoes, and slip on shoes to make application easier. Verbalized understanding of all techniques to make LE dressing easier. All needs met in room. [id number] 1, ADL Discharge today. JANNETTE TORRES OT Jan 24, 2017 09:55
[2017-01-24 11:23] VITALS: BP 106/70
--- OUTSIDE RECORDS SUMMARY | 2017-01-24 17:06 | XMS REPORT | Continuity of Care Document ---
Author Author [facility] Organization [facility] Address Unknown Phone Unavailable Care Team Providers Care Duck Farmer Name Role Phone Minerva West PCP [phone] Source Comments Some departments are not documenting in the electronic medical record. If you do not see the information that you expected, contact Release of Information in the Health Information Management department at [phone] for further assistance in locating additional records.[facility] Active Allergies and Adverse Reactions No Known Allergies Current Medications Prescription Sig. Disp. Refills Start End Date Status Date HYDROcodone/acetaminophen Take 1 Tab by mouth every Active (NORCO; VICODIN) 5-325 mg 4 hours as needed for tablet Pain gabapentin (NEURONTIN) Take 100 mg by mouth Active 100 mg capsule three times daily. LEVOTHYROXINE SODIUM Take by mouth. Active (SYNTHROID PO) ALPRAZOLAM (XANAX PO) Take by mouth. Active CYCLOBENZAPRINE HCL Take by mouth. Active (FLEXERIL PO) ESOMEPRAZOLE MAGNESIUM Take by mouth. Active (NEXIUM PO) traZODone (DESYREL) 100 Take 100 mg by mouth at Active mg tablet bedtime daily. 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
--- OUTSIDE RECORDS SUMMARY | 2017-01-24 17:46 | XMS REPORT | Continuity of Care Document ---
Author Author [facility] Organization [facility] Address Unknown Phone Unavailable Care Team Providers Care Garbage Person Name Role Phone Minerva West PCP [phone] Source Comments Some departments are not documenting in the electronic medical record. 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 Pulse 68 08/18/2015 2:09 PM FARM [employer]ODU[employer] SHIPPER Temperature 36.9 C (98.5 F) 05/26/2015 11:06 AM CDT Respiratory Rate 12 08/18/2015 2:09 PM FARM [employer]ODU[employer] SHIPPER Height 1.702 m (5' 7") 08/18/2015 2:09 PM FARM [employer]ODU[employer] SHIPPER Weight 49.896 kg (110 lb) 08/18/2015 2:09 PM FARM [employer]ODU[employer] SHIPPER Body Mass Index 17.22 08/18/2015 2:09 PM FARM PRODU[employer] SHIPPER Oxygen Saturation 100% 08/18/2015 2:09 PM FARM [employer]ODU[employer] SHIPPER Plan of Care Health Maintenance Due Date Last Done Comments Physical (Comprehensive) 02/16/1976 Exam Pertussis Vaccine 02/16/1980 Tetanus Vaccine 1986 Cervical Cancer Screening 1990 Breast Cancer Screening 2009 Influenza Vaccine 04/06/2017 Results from Last 3 Months Not on file
== END 2017-01-24 10:25 | disposition home or self-care (01) | DRG 482 ==
LOC: EDUNIT# 17:01 → ER 17:03 → 4TH 19:47 → ENPENDDIS 01-24 06:36
PROVIDERS: ADMIT Orthopaedic Surgery; ATTEND Internal Medicine
PROC: 0QS634Z Reposition Right Upper Femur with Internal Fixation Device, Percutaneous Approach (ICD-10-PCS; principal; 2017-01-22 11:58)
DX: S72.001A Fracture of unspecified part of neck of right femur, initial encounter for closed fracture (principal); S40.011A Contusion of right shoulder, initial encounter; M79.7 Fibromyalgia; F17.210 Nicotine dependence, cigarettes, uncomplicated; K44.9 Diaphragmatic hernia without obstruction or gangrene; E03.9 Hypothyroidism, unspecified; F41.9 Anxiety disorder, unspecified; F32.9 Major depressive disorder, single episode, unspecified; W10.9XXA Fall (on) (from) unspecified stairs and steps, initial encounter
CPT/HCPCS: 36415; 51702; 70450; 71010; 72125; 72170; 73030; 73221; 73502; 73552; 73700; 80053; 81000; 85025; 85027; 85610; 85730; 87081; 93005; 94664

== ENCOUNTER → 2017-02-22 | Outpatient (CLI) | payer BC ==
[~2017-02-22] MED LIST: ASPI-9 PO; CEFD300C3 PO; CYCL10TA9 PO; FLUC150T PO; FLUO40CA PO; GABA-488 PO; GABA300C PO; LEVO112T2 PO; OXYC-471 PO; TRAZ100T92 PO
--- NOTE | 2017-02-22 11:36 | Diagnostic Imaging Report ---
Examination: DEXA scan. Indication: osteopenia Technique: Bone mineral density estimated based on dual energy radiography over the lumbar spine and femoral necks, was performed. Findings: The lumbar spine T-score is minus 1. T score over the left femoral neck is -2.8. The right hip was not evaluated due to internal fixation hardware. IMPRESSION: Osteoporosis.. Dictated by: Dictated on workstation # [id number]
== END ==
LOC: RAD 10:21
PROVIDERS: ATTEND Orthopaedic Surgery
DX: M81.0 Age-related osteoporosis without current pathological fracture (principal)
CPT/HCPCS: 77080

== ENCOUNTER 2017-03-07 15:38 | Emergency (ER) | payer BC ==
[~2017-03-07] VITALS: Ht 167.6 cm; Wt 49.9 kg
[~2017-03-07 15:38] MED LIST changes: -CEFD300C3 PO; -FLUC150T PO
--- NOTE | 2017-03-07 15:48 | ED Lower Extremity ---
General Chief Complaint: Lower Extremity Stated Complaint: POSSIBLE BLOOD CLOT IN RT LEG Source: patient Exam Limitations: no limitations History of Present Illness Time seen by provider: 15:46 Initial Comments To ER comes in by family with reports of a possible blood clot in the right leg. Patient has had intermittent swelling to the right leg since she had hip surgery to the right hip done here in January following a fracture. She does have a history of deep vein thromboses postoperative as well. She is not currently on any anticoagulation except for an aspirin daily but she states "I haven't been taking it as I should be because it upsets my stomach". She has not on any exogenous estrogen. She does smoke about 1/2-1 pack of cigarettes per day. Today, she noticed some redness and a cool sensation to the right leg. She denies any chest pains, shortness of breath or dyspnea. She denies fevers or chills. Onset: just prior to arrival Severity: moderate Pain/Injury Location: right leg Allergies and Home Medications Allergies Coded Allergies: pantoprazole (Verified Allergy, Severe, BLOOD CLOTS, 03/07/17) NKANo Known Allergies (Verified Allergy, Unknown, 03/29/06) Home Medications Aspirin/Calcium Carbonate/Mag 325 Mg Tablet, 325 MG PO DAILY, #60 Prescribed by: SUNSHINE MANE on 01/24/17 0631 Cefdinir 300 Mg Capsule, 300 MG PO BID, #14 Prescribed by: NADIYA MANDUJANO on 03/07/17 1630 Fluoxetine HCl 40 Mg Capsule, 40 MG PO HS, (Reported) Gabapentin 300 Mg Capsule, 300 MG PO BID, (Reported) Levothyroxine Sodium 112 Mcg Tablet, 112 MCG PO DAILY, (Reported) Oxycodone HCl/Acetaminophen 1 Each Tablet, 1-2 TAB PO Q4H PRN for PAIN-MODERATE , #60 Prescribed by: SUNSHINE MANE on 01/24/17 0631 Trazodone HCl 100 Mg Tablet, 100 MG PO HS, (Reported) Constitutional: see HPI EENTM: see HPI Respiratory: no symptoms reported Cardiovascular: no symptoms reported Genitourinary: no symptoms reported Musculoskeletal: see HPI Skin: no symptoms reported Psychiatric/Neurological: No Symptoms Reported Past Oeoezeh-Eykypy-Mpaqxi Hx Patient Social History Type Used: Cigarettes 2nd Hand Smoke Exposure: No Recent Foreign Travel: No Contact w/Someone Who Travel: No Recent Hopitalizations: No Seasonal Allergies Seasonal Allergies: No Surgeries Surgeries: Abdominal, Adenoidectomy, Gallbladder, Hysterectomy, Orthopedic, Tonsillectomy Gastrointestinal Gastrointestinal Disorders: Hiatal Hernia Musculoskeletal Musculoskeletal Disorders: Degenerate Disk Disease, Fibromyalgia Endocrine Endocrine Disorders: Hypothyroidsim Psychosocial Behavioral Health Disorders: Anxiety, Depression Blood Transfusions Adverse Reaction to a Blood Tr: No Physical Exam Vital Signs Vital Sign - Last 12Hours 03/07/17 15:40 Temp 98.0 Pulse 75 Resp 16 B/P (MAP) 107/67 Pulse Ox 99 O2 Delivery Room Air Capillary Refill : General Appearance: WD/WN, no apparent distress HEENT: PERRL/EOMI, normal ENT inspection Neck: non-tender, full range of motion Cardiovascular: regular rate, rhythm Respiratory: no respiratory distress, no accessory muscle use Gastrointestinal: normal bowel sounds, non tender Hips: bilateral hip non-tender, bilateral hip normal inspection, bilateral hip normal range of motion Legs: right leg pain, right leg soft tissue tenderness, right leg swelling, right leg other (erythema) Knees: bilateral knee non-tender, bilateral knee normal inspection, bilateral knee normal range of motion Ankles: bilateral ankle non-tender, bilateral ankle normal inspection, bilateral ankle normal range of motion Feet: bilateral foot other (erythema and a petechial rash to the right foot. There is capillary refill of the toes at less than 3 seconds. There is a palpable dorsalis pedis pulse at +1 strength bilaterally.) Neurologic/Psychiatric: alert, normal mood/affect, oriented x 3 Skin: normal color, warm/dry Comments I do not appreciate any difference in temperatures to her legs the posterior left calf may be just a bit cooler than the right. However the feet and toes are both the same temperature though there is an erythematous and petechial rash to the dorsal aspect of the right foot. Capillary refill to the toes on both feet is about 3 seconds and there is a palpable dorsalis pedis pulse +1 strength to both feet. There is no open wound that is in obvious source of infection nor portal of entry however she does shave her legs. This rash does not have the deep red sharply demarcated and elevated borders typically seen with erysipelas. Progress/Results/Core Measures Results/Orders Lab Results Laboratory Tests Test 03/07/17 16:05 Range/Units White Blood Count 7.4 4.3-11.0 10^3/uL Red Blood Count 4.05 L 4.35-5.85 10^6/uL Hemoglobin 12.6 11.5-16.0 G/DL Hematocrit 38 35-52 % Mean Corpuscular Volume 93 80-99 FL Mean Corpuscular Hemoglobin 31 25-34 PG Mean Corpuscular Hemoglobin Concent 34 32-36 G/DL Red Cell Distribution Width 13.7 10.0-14.5 % Platelet Count 245 130-400 10^3/uL Mean Platelet Volume 9.6 7.4-10.4 FL Neutrophils (%) (Auto) 56 42-75 % Lymphocytes (%) (Auto) 29 12-44 % Monocytes (%) (Auto) 7 0-12 % Eosinophils (%) (Auto) 7 0-10 % Basophils (%) (Auto) 0 0-10 % Neutrophils # (Auto) 4.2 1.8-7.8 X 10^3 Lymphocytes # (Auto) 2.2 1.0-4.0 X 10^3 Monocytes # (Auto) 0.6 0.0-1.0 X 10^3 Eosinophils # (Auto) 0.5 H 0.0-0.3 10^3/uL Basophils # (Auto) 0.0 0.0-0.1 10^3/uL Sodium Level 138 135-145 MMOL/L Potassium Level 3.6 3.6-5.0 MMOL/L Chloride Level 102 98-107 MMOL/L Carbon Dioxide Level 28 21-32 MMOL/L Anion Gap 8 5-14 MMOL/L Blood Urea Nitrogen 6 L 7-18 MG/DL Creatinine 0.68 0.60-1.30 MG/DL Estimat Glomerular Filtration Rate > 60 BUN/Creatinine Ratio 9 Glucose Level 87 70-105 MG/DL Calcium Level 9.1 8.5-10.1 MG/DL Total Bilirubin 0.3 0.1-1.0 MG/DL Aspartate Amino Transf (AST/SGOT) 28 5-34 U/L Alanine Aminotransferase (ALT/SGPT) 32 0-55 U/L Alkaline Phosphatase 77 40-136 U/L C-Reactive Protein High Sensitivity 0.04 0.00-0.50 MG/DL Total Protein 6.4 6.4-8.2 GM/DL Albumin 4.0 3.2-4.5 GM/DL My Orders Orders - NADIYA MANDUJANO APRN Cbc With Automated Diff (03/07/17 15:45) Comprehensive Metabolic Panel (03/07/17 15:45) Us Venous Lower Ext Rt (03/07/17 15:45) Hs C Reactive Protein (03/07/17 16:03) Vital Signs/I&O Vital Sign - Last 12Hours 03/07/17 15:40 Temp 98.0 Pulse 75 Resp 16 B/P (MAP) 107/67 Pulse Ox 99 O2 Delivery Room Air Diagnostic Imaging Diagonstic Imaging: Ultrasound Plain Films/CT/US/NM/MRI: facial bones Comments NAME: HARISH KEMP [facility] REC#: [id number] PT STATUS: REG ER : 1970 PHYSICIAN: NADIYA MANDUJANO APRN ADMIT DATE: 03/07/17/ER Signed Date of Exam:03/07/17 US VENOUS LOWER EXT RT EXAMINATION: Right lower extremity duplex venous ultrasound. TECHNIQUE: DVT protocol. Multiple sonographic images with color Doppler and waveform interrogation were performed of the right lower extremity veins with compression and augmentation maneuvers. INDICATION: Right leg pain. FINDINGS: The right lower extremity veins from the groin to below the knee veins were examined with normal color-flow, compressibility and normal waveform demonstrated. The great saphenous vein is patent. IMPRESSION: No evidence of DVT in the right lower extremity. Dictated by: Dictated on workstation # [id number] Dict: 03/07/17 1611 Trans: 03/07/17 1612 [facility] [id number] Interpreted by: ROMMEL KEE MD Electronically signed by: ROMMEL KEE MD 03/07/17 1612 Departure Communication Progress Notes She is not tachycardic, hypoxic or tachycardic or hypotensive. 3-I have asked Dr. Porras to look at the rash as well. He agrees with treating for a superficial skin infection with antibiotics. Patient is scheduled to follow-up with Ortho [facility] this Sunday so I will cancel the appointment made for her with Dr. Brett irizarry. Impression Impression: Primary Impression: Cellulitis Disposition: 01 HOME, SELF-CARE Condition: Stable Departure-Patient Inst. Decision time for Depature: 16:26 Referrals: CATA VERAS MD (PCP/Family) Primary Care Physician Patient Instructions: Cellulitis and Erysipelas (Skin Infections) Add. Discharge Instructions: 1. Elevate the leg as much as possible 2. Take your aspirin. If this upsets your stomach take it with food and you may also take a protonix (over the counter) to help protect your stomach. It is important to take her aspirin as directed because of her history of having blood clots, her recent surgery, and smoking status are all individual risk factors for development of blood clot. Aspirin will not entirely eliminate the risk of blood clot but will help significantly. 3. Take antibiotics as directed. 4. Return to ER for any worsening swelling, redness, fevers or other concerns 5. I've made an appointment for you to see Saskia Nurse Practitioner at Dr. Veras's clinic on Sunday at 1030 a.m. for recheck. Scripts Fluconazole (Diflucan) 150 Mg Tablet 150 MG PO DAILY, #2 TAB Prov: NADIYA MANDUJANO APRN 03/07/17 Cefdinir (Cefdinir) 300 Mg Capsule 300 MG PO BID, #14 CAP Prov: NADIYA MANDUJANO APRN 03/07/17 Copy Copies To 1: CATA VERAS MD, PETER J APRN Mar 07, 2017 15:48
[2017-03-07 16:14] LABS: BASOPHILS % (AUTO) 0 % (0-10); EOSINOPHILS # (AUTO) 0.5 10^3/uL (0.0-0.3); EOSINOPHILS % (AUTO) 7 % (0-10); LYMPHOCYTES # (AUTO) 2.2 X 10^3 (1.0-4.0); LYMPHOCYTES % (AUTO) 29 % (12-44); MEAN CORPUSCULAR HEMOGLOBIN 31 PG (25-34); MEAN CORPUSCULAR HGB CONC 34 G/DL (32-36); MEAN CORPUSCULAR VOLUME 93 FL (80-99); MEAN PLATELET VOLUME 9.6 FL (7.4-10.4); MONOCYTES # (AUTO) 0.6 X 10^3 (0.0-1.0); MONOCYTES % (AUTO) 7 % (0-12); NEUTROPHILS # (AUTO) 4.2 X 10^3 (1.8-7.8); NEUTROPHILS % (AUTO) 56 % (42-75); PLATELET COUNT 245 10^3/uL (130-400); RED BLOOD COUNT 4.05 10^6/uL (4.35-5.85); RED CELL DISTRIBUTION WIDTH 13.7 % (10.0-14.5); WHITE BLOOD COUNT 7.4 10^3/uL (4.3-11.0)
--- NOTE | 2017-03-07 16:15 | Diagnostic Imaging Report ---
EXAMINATION: Right lower extremity duplex venous ultrasound. TECHNIQUE: DVT protocol. Multiple sonographic images with color Doppler and waveform interrogation were performed of the right lower extremity veins with compression and augmentation maneuvers. INDICATION: Right leg pain. FINDINGS: The right lower extremity veins from the groin to below the knee veins were examined with normal color-flow, compressibility and normal waveform demonstrated. The great saphenous vein is patent. IMPRESSION: No evidence of DVT in the right lower extremity. Dictated by: Dictated on workstation # [id number]
[2017-03-07] MEDS ORDERED: CEFD300C3 PO (16:30)
[2017-03-07 16:33] LABS: ALANINE AMINOTRANSFERASE 32 U/L (0-55); ANION GAP 8 MMOL/L (5-14); ASPARTATE AMINO TRANSFERASE 28 U/L (5-34); BILIRUBIN,TOTAL 0.3 MG/DL (0.1-1.0); BLOOD UREA NITROGEN 6 MG/DL (7-18); BUN/CREATININE RATIO 9; CALCIUM 9.1 MG/DL (8.5-10.1); CARBON DIOXIDE 28 MMOL/L (21-32); CHLORIDE 102 MMOL/L (98-107); CREATININE SERUM 0.68 MG/DL (0.60-1.30); GFR ESTIMATED > 60; GLUCOSE 87 MG/DL (70-105); POTASSIUM 3.6 MMOL/L (3.6-5.0); SODIUM 138 MMOL/L (135-145); TOTAL PROTEIN 6.4 GM/DL (6.4-8.2); hs C REACTIVE PROTEIN 0.04 MG/DL (0.00-0.50)
[2017-03-07] MEDS ORDERED: FLUC150T PO (16:53)
[2017-03-07 17:05] VITALS: BP 92/64
== END 2017-03-07 17:05 | disposition home or self-care (01) ==
LOC: EDUNIT# 15:38 → ER 15:39
DX: L03.115 Cellulitis of right lower limb (principal); M47.9 Spondylosis, unspecified; E03.9 Hypothyroidism, unspecified; F41.9 Anxiety disorder, unspecified; F32.9 Major depressive disorder, single episode, unspecified; F17.210 Nicotine dependence, cigarettes, uncomplicated; Z90.49 Acquired absence of other specified parts of digestive tract; Z90.710 Acquired absence of both cervix and uterus; Z90.89 Acquired absence of other organs; Z98.890 Other specified postprocedural states; Z79.82 Long term (current) use of aspirin
CPT/HCPCS: 36415; 80053; 85025; 86141

== ENCOUNTER 2017-10-22 09:09 | Outpatient (RCR) | payer BC ==
[~2017-10-22 09:09] MED LIST changes: +CEFD300C3 PO; +FLUC150T PO
== END 2017-12-26 | disposition home or self-care (01) ==
LOC: CARD 09:09
PROVIDERS: ATTEND Internal Medicine Interventional Cardiology
DX: R00.2 Palpitations (principal)
CPT/HCPCS: 93270

== ENCOUNTER 2017-10-23 08:57 | Outpatient (RCR) | payer BC | END 2018-01-21 | disposition home or self-care (01) | LOC: CARD 08:57 | PROVIDERS: ATTEND Internal Medicine Interventional Cardiology | DX: R07.9 Chest pain, unspecified (principal); K21.9 Gastro-esophageal reflux disease without esophagitis; E06.3 Autoimmune thyroiditis; R94.31 Abnormal electrocardiogram [ECG] [EKG]; R06.02 Shortness of breath; R00.2 Palpitations | CPT/HCPCS: 93225; 93226 ==

== ENCOUNTER → 2017-10-25 | Outpatient (CLI) | payer BC ==
[~2017-10-25] MED LIST changes: +CATHETER FLUSH 10 ML SYR IV PRN; +REGADENOSON 0.4 MG/5 ML SYR (LEXISCAN) IV ONE
[2017-10-25 09:20] VITALS: BP 98/62
--- NOTE | 2017-10-25 17:40 | Cardiology Stress Test Report ---
Stress Test Report Type of NM Stress Test: Test Type: LEXISCAN 0.4MG/5ML Date of Procedure/Referring: Date of Procedure: Oct 25, 2017 PCP Korin Abdi MD Admitting Physician Minerva West MD Indications: Chest pain Baseline Heart Rate: 59 Baseline Blood Pressure: Blood Pressure Systolic: 98 Blood Pressure Diastolic: 62 Baseline EKG: Baseline EKG: sinus rhythm Summary: The patient was brought to the stress lab after informed consent was taken. Lexiscan stress test was performed according to the protocol. 0.4 mg of IV Lexiscan was given. Low-grade exercise was performed. Baseline EKG showed sinus rhythm at 59 bpm and blood pressure 98/62 mmHg. Maximum heart rate of 116 bpm and blood pressure of 102/58 mmHg. Patient did not have any chest pain , arrhythmias or ST-T wave abnormalities. 10.70 mCi of Myoview was given for rest imaging and 31.4 mCi of Myoview was given for stress imaging. Transient ischemic dilatation score was 1.12. EF 57 percent with no wall motion abnormalities. Normal perfusion during rest and stress. Conclusion: Pharmacological stress test is negative for ischemia. Normal LV function with no wall motion abnormalities. Normal myocardial perfusion imaging during rest and stress. Korin ABDI MD Oct 25, 2017 5:40 pm
== END ==
LOC: CARD 08:07
PROVIDERS: ATTEND Internal Medicine Interventional Cardiology
DX: R07.9 Chest pain, unspecified (principal); K21.9 Gastro-esophageal reflux disease without esophagitis; E06.3 Autoimmune thyroiditis; R94.31 Abnormal electrocardiogram [ECG] [EKG]; R06.02 Shortness of breath; R00.2 Palpitations
CPT/HCPCS: 78452; 93017

== ENCOUNTER 2022-11-09 01:26 | Inpatient (IN) | payer OTHER ==
[~2022-11-09] VITALS: Ht 165.1 cm; Wt 54.2 kg
[~2022-11-09 01:26] MED LIST changes: -CATHETER FLUSH 10 ML SYR IV PRN; +CYCL10TA25 PO; -CYCL10TA9 PO; -OXYC-471 PO; +OXYC1TAB11 PO; -REGADENOSON 0.4 MG/5 ML SYR (LEXISCAN) IV ONE; +TRAZ-227 PO; -TRAZ100T92 PO
[2022-11-09] MEDS ORDERED: NS IV 1000 ML 1,000 ML IV STA (02:01)
--- NOTE | 2022-11-09 02:06 | ED General ---
General Stated Complaint: VOMITING,DEHYDRATION Source of Information: Patient Exam Limitations: No Limitations History of Present Illness Date Seen by Provider: Nov 09, 2022 Time Seen by Provider: 01:53 Initial Comments Patient is a 52yo female who presents to the ER with a complaint of abdominal pain N/V. She has been vomiting all day. She has chronic neck and back pain. Sees Ortho through [facility]. Had Accupuncture this morning at around 0930 and shortly after states that she began vomiting and has continued to vomit all day. Has not taken anything for her symptoms. Denies fevers, chills, diarrhea, dysuria. No new or unusual foods. Is very agitated on arrival and it is difficult to get her to answer questions. provides some history, States she has chronic pain and is scheduled for follow up with possble neck surgery in the coming months. Prior abdominal surgeries include calli and hyst. No hematemesis reported. Does smoke marijuana for pain control. Timing/Duration: 12-24 Hours Severity: Severe Associated Systoms: Nausea/Vomiting, Other (shaking) Allergies and Home Medications Allergies Coded Allergies: pantoprazole (Verified Allergy, Severe, BLOOD CLOTS, 03/07/17) NKANo Known Allergies (Verified Allergy, Unknown, 03/29/06) Patient Home Medication List Home Medication List Reviewed: Yes Cyclobenzaprine HCl (Cyclobenzaprine HCl) 10 Mg Tablet, 10 MG PO 1800, (Reported) Entered as Reported by: CATHY DHALIWAL on 11/09/221045 Last Action: Continued Gabapentin (Neurontin) 300 Mg Capsule, 300 MG PO BID, (Reported) Entered as Reported by: CATHY DHALIWAL on 11/09/221045 Last Action: Reviewed Levothyroxine Sodium (Synthroid) 100 Mcg Tablet, 100 MG PO DAILY, (Reported) Entered as Reported by: CATHY DHALIWAL on 11/09/221045 Last Action: Reviewed Lorazepam (Ativan) 0.5 Mg Tablet, 0.25-0.5 MG PO BID PRN for ANXIETY, (Reported) Entered as Reported by: CATHY DHALIWAL on 11/09/221045 Last Action: Reviewed Trazodone HCl (Trazodone HCl) 100 Mg Tablet, 100 MG PO HS, (Reported) Entered as Reported by: GENIE CRAWLEY on 6/19/17 0009 Last Action: Continued Discontinued Medications Aspirin/Calcium Carbonate/Mag (Aspirin Buffered 325 mg Tab) 325 Mg Tablet, 325 MG PO DAILY Discontinued Reason: Duplicate Order Prescribed by: SUNSHINE MANE on 01/24/17630 Last Action: Discontinued Cefdinir (Cefdinir) 300 Mg Capsule, 300 MG PO BID Discontinued Reason: Duplicate Order Prescribed by: NADIYA MANDUJANO on 03/07/17 163 Last Action: Discontinued Fluconazole (Diflucan) 150 Mg Tablet, 150 MG PO DAILY Discontinued Reason: Duplicate Order Prescribed by: NADIYA MANDUJANO on 03/07/171652 Last Action: Discontinued Fluoxetine HCl (Fluoxetine HCl) 40 Mg Capsule, 40 MG PO HS, (Reported) Discontinued Reason: Duplicate Order Entered as Reported by: JERRY JACOB on 01/22/17851 Last Action: Discontinued Gabapentin (Gabapentin) 300 Mg Capsule, 300 MG PO BID, (Reported) Discontinued Reason: Duplicate Order Entered as Reported by: JERRY JACOB on 01/22/17851 Last Action: Discontinued Levothyroxine Sodium (Synthroid) 112 Mcg Tablet, 112 MCG PO DAILY, (Reported) Discontinued Reason: Duplicate Order Entered as Reported by: GENIE CRAWLEY on 01/22/178 Last Action: Discontinued Oxycodone HCl/Acetaminophen (Oxycodone-Acetaminophen 5-325) 1 Each Tablet, 1-2 TAB PO Q4H PRN for PAIN-MODERATE Discontinued Reason: Duplicate Order Prescribed by: SUNSHINE MANE on 01/24/17630 Last Action: Discontinued Review of Systems Review of Systems Constitutional: see HPI EENTM: other (dry mouth) Respiratory: no symptoms reported Cardiovascular: no symptoms reported Gastrointestinal: nausea, vomiting Genitourinary: decreased output : No (hyst) Musculoskeletal: neck pain (chronic) Skin: other (cool and clammy) Psychiatric/Neurological: Anxiety All Other Systems Reviewed Negative Unless Noted: Yes Past Omfkzjl-Uljxuv-Gfoncs Hx Seasonal Allergies Seasonal Allergies: No Past Medical History Surgeries: Yes Abdominal, Adenoidectomy, Gallbladder, Hysterectomy, Orthopedic, Tonsillectomy Respiratory: No Cardiac: Yes Deep Vein Thrombosis 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 0.0oz. [id number]; 17.0 BMI Method:Stated General Appearance: Anxious, Moderate Distress, Thin Eyes: Bilateral Eye Normal Inspection, Bilateral Eye PERRL, Bilateral Eye EOMI HEENT: Other (dry oral mucosa) Neck: Normal Inspection Respiratory: Lungs Clear, Normal Breath Sounds, No Accessory Muscle Use, No Respiratory Distress Cardiovascular: Regular Rate, Rhythm (60's), Normal Peripheral Pulses Gastrointestinal: Soft, Abnormal Bowel Sounds (hyperactive), Guarding (voluntary) Extremity: Normal Inspection, Normal Range of Motion Neurologic/Psychiatric: Alert, Oriented x3, Other (anxious, tremoring all over) Skin: Damp Progress/Results/Core Measures Suspected Sepsis SIRS Temperature: Pulse: Respiratory Rate: Laboratory Tests 11/09/22 02:00: White Blood Count 10.0 Blood Pressure / Mean: Laboratory Tests 11/09/22 02:00: Platelet Count 280, Total Bilirubin 0.8 Results/Orders Lab Results Laboratory Tests Test 11/09/22 02:00 Range/Units White Blood Count 10.0 4.3-11.0 10^3/uL Red Blood Count 4.10 3.80-5.11 10^6/uL Hemoglobin 12.4 11.5-16.0 g/dL Hematocrit 35 35-52 % Mean Corpuscular Volume 86 80-99 fL Mean Corpuscular Hemoglobin 30 25-34 pg Mean Corpuscular Hemoglobin Concent 35 32-36 g/dL Red Cell Distribution Width 11.8 10.0-14.5 % Platelet Count 280 130-400 10^3/uL Mean Platelet Volume 9.7 9.0-12.2 fL Immature Granulocyte % (Auto) 0 % Neutrophils (%) (Auto) 78 H 42-75 % Lymphocytes (%) (Auto) 15 12-44 % Monocytes (%) (Auto) 7 0-12 % Eosinophils (%) (Auto) 0 0-10 % Basophils (%) (Auto) 0 0-10 % Neutrophils # (Auto) 7.8 1.8-7.8 10^3/uL Lymphocytes # (Auto) 1.5 1.0-4.0 10^3/uL Monocytes # (Auto) 0.7 0.0-1.0 10^3/uL Eosinophils # (Auto) 0.0 0.0-0.3 10^3/uL Basophils # (Auto) 0.0 0.0-0.1 10^3/uL Immature Granulocyte # (Auto) 0.0 0.0-0.1 10^3/uL Sodium Level 120 *L 135-145 MMOL/L Potassium Level 3.9 3.6-5.0 MMOL/L Chloride Level 86 L 98-107 MMOL/L Carbon Dioxide Level 20 L 21-32 MMOL/L Anion Gap 14 5-14 MMOL/L Blood Urea Nitrogen 6 L 7-18 MG/DL Creatinine 0.70 0.60-1.30 MG/DL Estimat Glomerular Filtration Rate 103 BUN/Creatinine Ratio 9 Glucose Level 106 H 70-105 MG/DL Calcium Level 9.1 8.5-10.1 MG/DL Corrected Calcium 8.9 8.5-10.1 MG/DL Total Bilirubin 0.8 0.1-1.0 MG/DL Aspartate Amino Transf (AST/SGOT) 37 H 5-34 U/L Alanine Aminotransferase (ALT/SGPT) 18 0-55 U/L Alkaline Phosphatase 103 40-136 U/L Total Creatine Kinase 773 H 29-168 U/L Total Protein 6.8 6.4-8.2 GM/DL Albumin 4.3 3.2-4.5 GM/DL Lipase 46 8-78 U/L My Orders Orders - SHARLA VILLARREAL MD Ed Iv/Invasive Line Start (11/09/22 02:01) Cbc With Automated Diff (11/09/22 02:01) Comprehensive Metabolic Panel (11/09/22 02:01) Creatine Kinase (11/09/22 02:01) Ns Iv 1000 Ml (Sodium Chloride 0.9%) (11/09/22 02:01) Promethazine Injection (Phenergan Injec (11/09/22 02:15) Lipase (11/09/22 02:36) Medications Given in ED Vital Signs/I&O 11/09/22 11/09/22 11/09/22 01:52 02:00 03:28 Temp 35.2 35.2 Pulse 68 66 Resp 30 24 B/P (MAP) 123/74 (90) 92/70 Pulse Ox 98 97 O2 Delivery Room Air Room Air Room Air Capillary Refill : Progress Note : Time: 03:29 Progress Note Patient seen and evaluated by me. Eval today includes physical examination, CBC, CH12, lipase, total CK, UA. Physical exam pertinent for thin, ill-appearing female, moderate distress due to n/v. significant tremors; not really able to answer questions due to anxiety. Dry mucous membranes. Heart regular 60-70's. Lungs clear. Abdomen, hyperactive BS with voluntary guarding. diffusely tender. moves all extremities well, however coarse tremors throughout. Alert and oriented but distressed. slight trouble tracking conversation. DDx based ob hx and pe includes anxiety, medication withdrawal, medication side effect, gastroenteritis, SBO. Labs reviewed by me - CBC is normal..CH12 reveals significant hyponatremia with serum sodium of 120. normal renal function. normal LFT's. CK elevated in the 770 range. Patient has not produced a urine as of this documentation. treated with normal saline 1L and phenergan 25mg in the saline. She is feeling a little better, but still slightly confused. No concerning findings for sepsis, has not vomited since arrival. SBO low on the differential. I have reviewed medications and all of the ones on her list she has been on for years - nothing new. is concerned the accupuncture may have caused some of this - I believe this is unlikely. Case discussed with Dr Castro. recc NS at 150cc/hr. He stated to hold off on 3% saline. Will put her in ICU for the morning. REpeat BMP at 0800. adding urine sodium and chloride labs. Also getting a lipase. is updated on the plan of care. Departure Communication (Admissions) Time/Spoke to Admitting Phy: 02:[address] Castro (hospitalist); admit ICU; fluids NS 150ml/hr Impression Primary Impression: Dehydration with hyponatremia Disposition: ADMITTED INPATIENT Condition: Stable Admissions Decision to Admit Reason: Admit from ER (General) Decision to Admit/Date: Nov 09, 2022 Time/Decision to Admit Time: 02:50 Departure-Patient Inst. Referrals: CATA VERAS MD (PCP/Family) Primary Care Physician Copy Copies To 1: CATA VERAS MD, KATHRYN M MD Nov 09, 2022 02:06
[2022-11-09 02:09] LABS: BASOPHILS % (AUTO) 0 % (0-10); EOSINOPHILS % (AUTO) 0 % (0-10); HEMATOCRIT 35 % (35-52); HEMOGLOBIN 12.4 g/dL (11.5-16.0); LYMPHOCYTES # (AUTO) 1.5 10^3/uL (1.0-4.0); LYMPHOCYTES % (AUTO) 15 % (12-44); MEAN CORPUSCULAR HEMOGLOBIN 30 pg (25-34); MEAN CORPUSCULAR HGB CONC 35 g/dL (32-36); MEAN CORPUSCULAR VOLUME 86 fL (80-99); MEAN PLATELET VOLUME 9.7 fL (9.0-12.2); MONOCYTES # (AUTO) 0.7 10^3/uL (0.0-1.0); MONOCYTES % (AUTO) 7 % (0-12); NEUTROPHILS # (AUTO) 7.8 10^3/uL (1.8-7.8); NEUTROPHILS % (AUTO) 78 % (42-75); PLATELET COUNT 280 10^3/uL (130-400)
[2022-11-09] MEDS ORDERED: PROMETHAZINE INJ 25 MG/ML (PHENERGAN) AMP IVP ONE (02:15)
[2022-11-09 02:19] LABS: ALBUMIN 4.3 GM/DL (3.2-4.5); POTASSIUM 3.9 MMOL/L (3.6-5.0)
[2022-11-09 02:21] LABS: CALCIUM 9.1 MG/DL (8.5-10.1)
[2022-11-09 02:22] LABS: TOTAL PROTEIN 6.8 GM/DL (6.4-8.2)
[2022-11-09 02:24] LABS: BILIRUBIN,TOTAL 0.8 MG/DL (0.1-1.0)
[2022-11-09 02:25] LABS: CREATININE SERUM 0.7 MG/DL (0.60-1.30)
[2022-11-09 03:28] VITALS: BP 92/70
[2022-11-09] MEDS ORDERED: ONDANSETRON 4 MG/2 ML (SDV) Z0FRAN IVP PRN (04:15)
[2022-11-09] MEDS ORDERED: fentaNYL INJ 100 MCG/2 ML AMP IVP ONE (04:30)
[2022-11-09] MEDS ORDERED: KETOROLAC 30 MG/ML VIAL IVP ONE (04:30)
[2022-11-09] MEDS ORDERED: ACETAMINOPHEN 500 MG TAB (TYLENOL) PO ONE (04:30)
[2022-11-09] MEDS ORDERED: ONDANSETRON 4 MG/2 ML (SDV) Z0FRAN ONE (04:31)
[2022-11-09] MEDS ORDERED: ONDANSETRON 4 MG/2 ML (SDV) Z0FRAN IV PRN (05:00)
[2022-11-09 05:23] LABS: BASOPHILS % (AUTO) 0 % (0-10); EOSINOPHILS % (AUTO) 0 % (0-10); HEMATOCRIT 30 % (35-52); LYMPHOCYTES % (AUTO) 9 % (12-44); MEAN CORPUSCULAR HEMOGLOBIN 31 pg (25-34); MEAN CORPUSCULAR HGB CONC 36 g/dL (32-36); MEAN CORPUSCULAR VOLUME 85 fL (80-99); MONOCYTES # (AUTO) 0.8 10^3/uL (0.0-1.0); MONOCYTES % (AUTO) 7 % (0-12); NEUTROPHILS # (AUTO) 9.9 10^3/uL (1.8-7.8); NEUTROPHILS % (AUTO) 84 % (42-75); PLATELET COUNT 140 10^3/uL (130-400); WHITE BLOOD COUNT 11.8 10^3/uL (4.3-11.0)
[2022-11-09 05:29] LABS: ALBUMIN 3.7 GM/DL (3.2-4.5); POTASSIUM 3.6 MMOL/L (3.6-5.0)
[2022-11-09 05:30] LABS: CALCIUM 8.3 MG/DL (8.5-10.1)
[2022-11-09 05:32] LABS: TOTAL PROTEIN 5.6 GM/DL (6.4-8.2)
[2022-11-09 05:33] LABS: BILIRUBIN,TOTAL 0.6 MG/DL (0.1-1.0)
[2022-11-09 05:35] LABS: CREATININE SERUM 0.63 MG/DL (0.60-1.30); PHOSPHORUS 2.8 MG/DL (2.3-4.7)
[2022-11-09 05:38] LABS: MAGNESIUM 1.2 MG/DL (1.6-2.4)
[2022-11-09 05:58] LABS: FREE T4 (FREE THYROXINE) 1.4 NG/DL (0.70-1.48)
[2022-11-09] MEDS ORDERED: NS 100 ML (IVPB) BAG IV ONE (06:15)
[2022-11-09] MEDS ORDERED: HOLD METFORMIN - RECEIVED CONTRAST 20 ML VIAL IV SCH (06:15)
[2022-11-09] MEDS ORDERED: IOHEXOL 350 MG/ML 100 ML (OMNIPAQUE 350) VIAL IV ONE (06:15)
[2022-11-09] MEDS: NS IV 1000 ML 1,000 ML IV SCH ×2 (06:22→13:43)
[2022-11-09] MEDS: LEVOTHYROXINE 100 MCG (LEVOTHROID) TAB PO SCH (06:23)
[2022-11-09] MEDS ORDERED: fentaNYL INJ 100 MCG/2 ML AMP IVP PRN (06:30)
[2022-11-09] MEDS ORDERED: NS IV 500 ML 500 ML IV PRN (06:45)
[2022-11-09] MEDS: MAGNESIUM 1 GM/100 ML IVPB 100 ML IV SCH ×6 (06:49→13:00)
--- NOTE | 2022-11-09 06:49 | Diagnostic Imaging Report ---
PROCEDURE: CT angiography of the head and CT angiography of the neck with and without contrast. TECHNIQUE: Contiguous noncontrast images were obtained from the skull base through the vertex. After intravenous contrast administration, helical CT angiography of the neck was performed. Source data was reformatted into 3D MIP projections. Delayed post contrast acquisition was also obtained. Auto Exposure Controls were utilized during the CT exam to meet ALARA standards for radiation dose reduction. INDICATION: Head and neck pain CTA HEAD: The ventricles are normal in size, shape and position. There are no masses or hemorrhages. There are no extra-axial fluid collections. Postcontrast images of the brain do not show any abnormal areas of enhancement. Intracranially the anterior, middle and posterior cerebral arteries are patent. Vertebral arteries, basilar artery and branches appear to be patent. There is no aneurysm, large vessel occlusion or other acute abnormality seen. IMPRESSION: Unremarkable CTA head. CTA NECK: The brachiocephalic origins are widely patent. The common, internal and external carotid arteries are widely patent. Both vertebral arteries are widely patent. There are postoperative changes from anterior cervical discectomy fusion of C5-C6. IMPRESSION: Unremarkable CTA neck. Dictated by: Dictated on workstation # [id number]
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
[2022-11-09] MEDS ORDERED: KCL 20 MEQ TAB (K-DUR) PO NR (07:00)
[2022-11-09] MEDS: GABAPENTIN 300 MG (NEURONTIN) CAP PO SCH ×2 (07:47→20:16)
--- NOTE | 2022-11-09 08:34 | History & Physical-Hospitalist ---
History of Present Illness HPI/Chief Complaint Patient is a 52-year-old female with a past medical history of chronic neck pain who presented to the emergency department due to nausea and vomiting. She went to physical therapy yesterday and had what she believed to be acupuncture done and following that she has had severe nausea and vomiting and had been unable to keep anything down. She states she vomited multiple times and was unable to quantify how many. She states she felt horrible yesterday and is now feeling somewhat better though does not feel back to baseline yet. She was found to be severely hyponatremic with a sodium of 120 and was admitted for further management. She does have a clear liquid breakfast tray at her bedside and has tolerated some sips of it. Source: patient Date Seen 11/09/22 Time Seen by a Provider: 08:00 Attending Physician Minerva West MD PCP Admitting Physician: Mainor Castro MD Attending Physician: Mainor Castro MD Referring Physician Date of Admission Nov 09, 2022 at 03:31 Home Medications & Allergies Home Medications Reviewed patient Home Medication Reconciliation performed by pharmacy medication reconciliations technician assistant and/or nursing. Patients Allergies have been reviewed. Allergies Allergies Coded Allergies pantoprazole (Verified Allergy, Severe, BLOOD CLOTS, 03/07/17) NKANo Known Allergies (Verified Allergy, Unknown, 03/29/06) Past Ospvswh-Eioune-Nwtvjt Hx Patient Social History Marrital Status: Tobacco Use?: Yes Tobacco type used: Cigarettes Smoking Status: Current Everyday Smoker Smokeless Tobacco Frequency: Never a User Use of E-Cig and/or Vaping dev: No Substance use?: Yes Substance type: Marijuana Additional substance use comme: EVERYDAY Alcohol Use?: No Pt feels they are or have been: No Seasonal Allergies Seasonal Allergies: No Current Status Advance Directives: No Communicates: Verbally Primary Language: Gibraltarian Preferred Spoken Language: [place]raltarian Is interpretation needed?: No Sensory deficits: Vision impairment Additional sensory deficits: IN ROOM Implanted or Applied Medical D: None Past Medical History Surgeries: Abdominal, Adenoidectomy, Gallbladder, Hysterectomy, Orthopedic, Tonsillectomy Deep Vein Thrombosis HAND WELT BUTTER History: Hysterectomy Hiatal Hernia Degenerate Disk Disease, Fibromyalgia Hypothyroidsim Anxiety, Depression Blood Disorders: No Adverse Reaction/Blood Tranf: No Review of Systems Constitutional: see HPI Physical Exam Physical Exam Vital Signs Vital Signs - First Documented 11/09/22 01:52 Temp 35.2 Pulse 68 Resp 30 B/P (MAP) 123/74 (90) Pulse Ox 98 O2 Delivery Room Air Capillary Refill : Less Than 3 Seconds Height, Weight, BMI Height: 5'6.00" Weight: 110lbs. 0.0oz. 49.989283yi; 19.88 BMI Method:Stated General Appearance: No Apparent Distress, WD/WN, Thin Respiratory: Lungs Clear, No Accessory Muscle Use, No Respiratory Distress Cardiovascular: Regular Rate, Rhythm, No Murmur Gastrointestinal: Normal Bowel Sounds, Non Tender, Soft Neurologic/Psychiatric: Alert, Oriented x3, Normal Mood/Affect; No Facial Droop, No Motor Weakness, No Sensory Deficit Results Results/Procedures Labs Laboratory Tests 11/09/22 02:00 11/09/22 05:10 11/09/22 09:07 11/09/22 13:16 11/09/22 17:16 11/09/22 20:32 11/10/22 00:45 11/10/22 03:59 Patient resulted labs reviewed. Imaging: Reviewed Imaging Report Imaging [facility], [place] NAME: HARISH KEMP [facility] REC#: [id number] PT STATUS: ADM Zoe : 1970 PHYSICIAN: FATOUMATA ROMAN MD ADMIT DATE: 11/09/22/ICU Signed Date of Exam:11/09/22 CT ANGIO HEAD/NECK PROCEDURE: CT angiography of the head and CT angiography of the neck with and without contrast. TECHNIQUE: Contiguous noncontrast images were obtained from the skull base through the vertex. After intravenous contrast administration, helical CT angiography of the neck was performed. Source data was reformatted into 3D MIP projections. Delayed post contrast acquisition was also obtained. Auto Exposure Controls were utilized during the CT exam to meet ALARA standards for radiation dose reduction. INDICATION: Head and neck pain CTA HEAD: The ventricles are normal in size, shape and position. There are no masses or hemorrhages. There are no extra-axial fluid collections. Postcontrast images of the brain do not show any abnormal areas of enhancement. Intracranially the anterior, middle and posterior cerebral arteries are patent. Vertebral arteries, basilar artery and branches appear to be patent. There is no aneurysm, large vessel occlusion or other acute abnormality seen. IMPRESSION: Unremarkable CTA head. CTA NECK: The brachiocephalic origins are widely patent. The common, internal and external carotid arteries are widely patent. Both vertebral arteries are widely patent. There are postoperative changes from anterior cervical discectomy fusion of C5-C6. IMPRESSION: Unremarkable CTA neck. Dictated by: Dictated on workstation # [id number] Dict: 11/09/22620 Trans: 11/09/22 1106 [facility] [id number] Interpreted by: DANAE MOLINA MD Electronically signed by: DANAE MOLINA MD 11/09/22 1106 Assessment/Plan Admission Diagnosis Hyponatremia Admission Status: Inpatient Order (span 2 midnights) Reason for Inpatient Admission: see below Assessment and Plan Hyponatremia Intractable nausea and vomiting Na 120 in the ER, not AMS Continue IVF and trend labs, avoid overcorrection Discussed the importance of slowly correcting with patient and she expressed understanding Continue antiemetics CLD, advance as tolerated Monitor in ICU Acute on chronic neck pain Discussed with Dr Polo Bueno He did PROM and then dry needling- recommends fluids Continue IVF and NSAIDs for pain CTA head and neck was negative Discussed with Dr West who had done CTA Head for possible aneurysm recently (mild ectasia and dilatation of proximal basilar artery with ?fenestration on their imaging) Will attempt to get images clouded over from there for comparison Diagnosis/Problems Diagnosis/Problems (1) Intractable nausea and vomiting (2) Chronic neck pain (3) Dehydration with hyponatremia Status: Acute Copy Copies To 1: MINERVA WEST MD, KATELYN M MD Nov 09, 2022 08:34
[2022-11-09 09:37] LABS: POTASSIUM 3.8 MMOL/L (3.6-5.0)
[2022-11-09 09:38] LABS: CALCIUM 8.4 MG/DL (8.5-10.1)
[2022-11-09 09:42] LABS: CREATININE SERUM 0.68 MG/DL (0.60-1.30)
[2022-11-09] MEDS ORDERED: LORA-404 PO (10:46)
[2022-11-09] MEDS ORDERED: GABA300C PO (10:46)
[2022-11-09] MEDS ORDERED: CYCL10TA25 PO (10:46)
[2022-11-09] MEDS ORDERED: LEVO100T PO (10:46)
[2022-11-09 13:34] LABS: POTASSIUM 4.2 MMOL/L (3.6-5.0)
[2022-11-09 13:35] LABS: CALCIUM 8.2 MG/DL (8.5-10.1)
[2022-11-09 13:39] LABS: CREATININE SERUM 0.73 MG/DL (0.60-1.30)
--- NOTE | 2022-11-09 14:50 | Physical Therapy Evaluation ---
PT Evaluation-General Medical Diagnosis Admission Date Nov 09, 2022 at 03:53 Medical Diagnosis: hyponatremia/N/V Onset Date: Nov 09, 2022 Therapy Diagnosis Therapy Diagnosis: debility Height/Weight Height (Feet): 5 Height (Inches): 6.00 Weight (Pounds): 110 Weight (Ounces): 0.0 Precautions Precautions/Isolations: Standard Precautions Referral Physician: Deisy Reason for Referral: Evaluation/Treatment Medical History Pertinent Medical History: DM, Smoking Current History ER secondary to vomiting and dehydration Reviewed History: Yes Social History Home: Single Level Current Living Status: Spouse Prior Prior Level of Function SCALE: Activities may be completed with or without assistive devices. 8-Dxzfalnsbm-ndcosgv completes the activity by him/herself with no assistance from a helper. 5-Set-up or Clean-up Assistance-helper sets up or cleans up; patient completes activity. Peculiar assists only prior to or following the activity. 4-Supervision or Touching Assistance-helper provides verbal cues and/or touching/steadying and/or contact guard assistance as patient completes activity. Assistance may be provided throughout the activity or intermittently. 3-Partial/Moderate Assistance-helper does LESS THAN HALF the effort. Peculiar lifts, holds or supports trunk or limbs, but provides less than half the effort. 2-Substantial/Maximal Assistance-helper does MORE THAN HALF the effort. Peculiar lifts or holds trunk or limbs and provides more than half the effort. 4-Ukrdrdrhe-dxcxve does ALL the effort. Patient does none of the effort to co mplete the activity. Or, the assistance of 2 or more helpers is required for the patient to complete the activity. If activity was not attempted, code reason: 7-Patient Refused. 9-Not Applicable-not attempted and the patient did not perform the activity before the current illness, exacerbation or injury. 10-Not Attempted due to Environmental Limitations-(lack of equipment, weather restraints, etc.). 88-Not Attempted due to Medical Conditions or Safety Concerns. Bed Mobility: 6 Transfers (B,C,W/C): 6 Gait: 6 Stairs: 6 Indoor Mobility (Ambulation): Independent Stairs: Independent Prior Devices Use: None PT Evaluation-Current Subjective Patient agrees to PT. No c/o at this time. Objective Patient Orientation: Normal For Age ROM/Strength ROM Lower Extremities bilateral LE WFL Strength Lower Extremities 5/5 grossly bilateral LE all planes Integumentary/Posture Bowel Incontinence: No Bladder Incontinence: No Posture WFL Neuromuscular (Tone, Coordination, Reflexes) grossly intact Sensory Vision: Wears Glasses Hearing: Functional Transfers Sit to Lying (QC): 6 Lying to Sitting/Side of Bed(Q: 6 Sit to Stand (QC): 6 Gait Mode of Locomotion: Walk Anticipated Mode of Locomotion: Walk Walk 10 feet (QC): 6 Walk 50 ft with 2 Turns(QC): 6 Walk 150 ft (QC): 6 Distance: >500' Gait Assistive Device: None Comments/Gait Description safe and functional with no deviation Balance Sitting Static: Normal Sitting Dynamic: Normal Standing Static: Normal Standing Dynamic: Normal Assessment/Needs Patient is currently at independent [facility] with all gross motor skills safely and does not require skilled PT intervention. Rehab Potential: Good PT Plan Treatment/Plan Treatment Plan: Discontinue PT, goals met Treatment Duration: Nov 09, 2022 Frequency: 1 time per week Estimated Hrs Per Day: .25 hour per day Patient and/or Family Agrees t: Yes Time Time In: 1425 Time Out: 1435 DATE: Nov 09, 2022 Total Billed Treatment Time: 10 Total Billed Treatment 1 visit EVLowC 10 min EUGENE CRUZ PT Nov 09, 2022 14:50
[2022-11-09 17:42] LABS: POTASSIUM 3.9 MMOL/L (3.6-5.0)
[2022-11-09 17:43] LABS: CALCIUM 8.2 MG/DL (8.5-10.1)
[2022-11-09 17:47] LABS: CREATININE SERUM 0.76 MG/DL (0.60-1.30)
[2022-11-09] MEDS ORDERED: CYCLOBENZAPRINE 10 MG (FLEXERIL) TAB PO SCH (18:00)
[2022-11-09] MEDS ORDERED: RX-CYCLOBENZAPRINE 10 MG (FLEXERIL) TAB PPK#3 PO SCH (18:00)
[2022-11-09 20:56] LABS: CALCIUM 8.2 MG/DL (8.5-10.1); CREATININE SERUM 0.71 MG/DL (0.60-1.30)
[2022-11-09] MEDS ORDERED: traZODone 100 MG (DESYREL) TAB PO SCH (21:00)
[2022-11-10 01:34] LABS: POTASSIUM 3.5 MMOL/L (3.6-5.0)
[2022-11-10 01:35] LABS: CALCIUM 8.2 MG/DL (8.5-10.1)
[2022-11-10 01:39] LABS: CREATININE SERUM 0.75 MG/DL (0.60-1.30)
[2022-11-10 04:24] LABS: BASOPHILS % (AUTO) 0 % (0-10); EOSINOPHILS # (AUTO) 0.1 10^3/uL (0.0-0.3); EOSINOPHILS % (AUTO) 1 % (0-10); HEMATOCRIT 33 % (35-52); HEMOGLOBIN 11.2 g/dL (11.5-16.0); LYMPHOCYTES # (AUTO) 2.5 10^3/uL (1.0-4.0); LYMPHOCYTES % (AUTO) 36 % (12-44); MEAN CORPUSCULAR HEMOGLOBIN 30 pg (25-34); MEAN CORPUSCULAR HGB CONC 35 g/dL (32-36); MEAN CORPUSCULAR VOLUME 87 fL (80-99); MEAN PLATELET VOLUME 10.4 fL (9.0-12.2); MONOCYTES # (AUTO) 0.6 10^3/uL (0.0-1.0); MONOCYTES % (AUTO) 9 % (0-12); NEUTROPHILS # (AUTO) 3.6 10^3/uL (1.8-7.8); NEUTROPHILS % (AUTO) 53 % (42-75); PLATELET COUNT 221 10^3/uL (130-400); WHITE BLOOD COUNT 6.9 10^3/uL (4.3-11.0)
[2022-11-10 04:49] LABS: ALBUMIN 3.7 GM/DL (3.2-4.5); POTASSIUM 3.6 MMOL/L (3.6-5.0)
[2022-11-10 04:50] LABS: CALCIUM 8.2 MG/DL (8.5-10.1)
[2022-11-10 04:52] LABS: TOTAL PROTEIN 5.6 GM/DL (6.4-8.2)
[2022-11-10 04:53] LABS: BILIRUBIN,TOTAL 0.5 MG/DL (0.1-1.0)
[2022-11-10 04:55] LABS: CREATININE SERUM 0.7 MG/DL (0.60-1.30); PHOSPHORUS 2.4 MG/DL (2.3-4.7)
[2022-11-10 04:58] LABS: MAGNESIUM 2.3 MG/DL (1.6-2.4)
[2022-11-10] MEDS ORDERED: KCL 20 MEQ TAB (K-DUR) PO ONE (06:00)
[2022-11-10] MEDS ORDERED: MAGNESIUM 1 GM/100 ML IVPB 100 ML IV SCH (06:00)
[2022-11-10] MEDS ORDERED: KCL 20 MEQ TAB (K-DUR) PO SCH (06:00)
[2022-11-10] MEDS ORDERED: POTASSIUM CL 10MEQ/50ML IVPB 50 ML IV SCH (06:00)
[2022-11-10] MEDS: LEVOTHYROXINE 100 MCG (LEVOTHROID) TAB PO SCH (06:03)
[2022-11-10] MEDS: GABAPENTIN 300 MG (NEURONTIN) CAP PO SCH (08:30)
--- NOTE | 2022-11-10 08:41 | Discharge Summary ---
Diagnosis/Chief Complaint Date of Admission Nov 09, 2022 at 03:53 Date of Discharge Admission Diagnosis Hyponatremia Primary Care Minerva West MD Discharge Diagnosis (1) Intractable nausea and vomiting (2) Chronic neck pain (3) Dehydration with hyponatremia Status: Acute Discharge Summary Discharge Physical Exam Allergies: Coded Allergies: pantoprazole (Verified Allergy, Severe, BLOOD CLOTS, 03/07/17) NKANo Known Allergies (Verified Allergy, Unknown, 03/29/06) Vitals & I&Os Vital Signs Date Time Temp Pulse Resp B/P (MAP) Pulse Ox O2 Delivery O2 Flow Rate FiO2 11/10/22 09:45 11/10/22 08:00 97 Room Air 11/10/22 08:00 68 11/10/22 03:17 36.8 11/09/22 06:00 20 General Appearance: No Apparent Distress, WD/WN Respiratory: Lungs Clear, No Respiratory Distress Cardiovascular: Regular Rate, Rhythm, No Murmur Gastrointestinal: Normal Bowel Sounds, Soft Neurologic/Psychiatric: Alert, Oriented x3 Hospital Course Patient was admitted to the hospital secondary intractable nausea and vomiting with hyponatremia due to dehydration. She had incidentally had physical therapy done with dry needling the morning of her admission. Shortly following that appointment she developed severe nausea and vomiting and was unable to keep anything down. She was found to have a sodium of 120 on presentation to the hospital. She was admitted to the ICU for slow correction of her sodium. I did call and update her primary care doctor and reviewed labs with her. Her sodium improved to 138 upon discharge. She had no neurological changes with a sodium of 120 or with correction. She was able to tolerate a diet and was requesting discharge home. She did have a CTA of her head given the physical therapy done to her neck on day of admission because she had a headache. This was negative for dissection. In speaking with her primary care doctor, Dr. West, [facility] though per report they were not seen on imaging here. Labs (last 24 hrs) Patient resulted labs reviewed. Pending Labs Imaging: Reviewed Imaging Report Discussion & Recommendations Discharge Planning: >30 minutes discharge planning Discharge Home Medications: Active Scripts Active Reported Ativan (Lorazepam) 0.5 Mg Tablet 0.25-0.5 Mg PO BID PRN Synthroid (Levothyroxine Sodium) 100 Mcg Tablet 100 Mg PO DAILY Neurontin (Gabapentin) 300 Mg Capsule 300 Mg PO BID Cyclobenzaprine HCl 10 Mg Tablet 10 Mg PO 1800 Trazodone HCl 100 Mg Tablet 100 Mg PO HS Instructions to patient/family Please see electronic discharge instructions given to patient. MELINDA LAU MD Nov 10, 2022 08:41
--- NOTE | 2022-11-10 08:47 | Discharge Inst-Simple/Standard ---
Discharge Inst-Standard Patient Instructions/Follow Up Plan of Care/Instructions/FU: Please continue to take your medications as written. Please follow up with your primary care doctor to follow up this hospital stay. Activity as Tolerated: Yes Discharge Diet: No Restrictions Return to The Hospital For: Chest pain,confusion, abdominal pain, nausea, vomiting, shortness of breath, fever, weakness, if you feel you are getting worse. MELINDA LAU MD Nov 10, 2022 08:47
== END 2022-11-10 09:45 | disposition home or self-care (01) | DRG 641 ==
LOC: EDUNIT# 01:26 → ER 01:29 → ICU 03:31 → OBSVTOIN 03:53
PROVIDERS: ADMIT Internal Medicine; ATTEND Internal Medicine
DX: E87.1 Hypo-osmolality and hyponatremia (principal); E86.0 Dehydration; M54.2 Cervicalgia; Z86.718 Personal history of other venous thrombosis and embolism; M79.7 Fibromyalgia; E03.9 Hypothyroidism, unspecified; F41.9 Anxiety disorder, unspecified; F32.A Depression, unspecified; G89.29 Other chronic pain; F17.210 Nicotine dependence, cigarettes, uncomplicated; F12.90 Cannabis use, unspecified, uncomplicated
CPT/HCPCS: 36415; 70496; 70498; 80048; 80053; 81000; 82550; 83690; 83735; 84100; 84439; 84443; 84481; 85025; 93005